=== PATIENT | female | born 1935 | race Caucasian/White ===

== ENCOUNTER 2020-02-27 12:49 | Outpatient (CLI) | payer MEDICARE, MEDICAID, SELFPAY | END 2020-02-27 12:50 | disposition home or self-care (01) | LOC: ANHAUDIO 12:52 | DX: Z01.10 Encounter for examination of ears and hearing without abnormal findings (principal) | CPT/HCPCS: 99199 ==

== ENCOUNTER 2020-03-08 10:54 | Outpatient (CLI) | payer MEDICARE, MEDICAID, SELFPAY | END 2020-03-08 10:55 | disposition home or self-care (01) | LOC: ANHAUDIO 10:55 | DX: Z01.10 Encounter for examination of ears and hearing without abnormal findings (principal) | CPT/HCPCS: 99199 ==

== ENCOUNTER 2020-03-19 08:34 | Outpatient (CLI) | payer MEDICARE, MEDICAID, SELFPAY | END 2020-03-19 08:35 | disposition home or self-care (01) | LOC: ANHAUDIO 08:35 | DX: H90.A21 Sensorineural hearing loss, unilateral, right ear, with restricted hearing on the contralateral side (principal); H90.A32 Mixed conductive and sensorineural hearing loss, unilateral, left ear with restricted hearing on the contralateral side | CPT/HCPCS: 92557; 92567 ==

== ENCOUNTER 2020-04-05 13:02 | Outpatient (RCR) | payer MEDICAID, SELFPAY | END 2020-04-05 23:59 | disposition home or self-care (01) | LOC: ANHAUDIO 13:02 | DX: Z46.1 Encounter for fitting and adjustment of hearing aid (principal) | CPT/HCPCS: V5241; V5256 ==

== ENCOUNTER 2020-08-01 08:56 | Outpatient (CLI) | payer MEDICARE, MEDICAID, SELFPAY ==
--- NOTE | ~2020-08-01 | MM_ITS ---
EXAMINATION: MM screening leena BI w joanne HISTORY: Screening TECHNIQUE: Craniocaudal and mediolateral oblique 3-D tomosynthesis images were obtained and synthetic 2-D images were generated. CAD analysis was submitted and interpreted. COMPARISON: No prior mammogram is available for comparison at this institution. BREAST PARENCHYMAL COMPOSITION: The breasts are heterogenously dense, which may obscure small masses. FINDINGS: There are a cluster of masses/asymmetries in the medial aspect of the right breast on the l argest measuring 8 mm. There is a focal asymmetry in the upper outer quadrant of the left breast. The re is a large mass in the lower central aspect of the left breast measuring 5 cm. There are additiona l masses adjacent to the dominant abnormality. IMPRESSION: 1. Bilateral breast masses and asymmetries. 2. Additional mammographic views and possible breast ultrasound are recommended. BI-RADS Category 0: Incomplete: Needs additional imaging evaluation. Reviewed, dictated and finalized at location A. IMPRESSION: 1. Bilateral breast masses and asymmetries. 2. Additional mammographic views and possible breast ultrasound are recommended . BI-RADS Category 0: Incomplete: Needs additional imaging evaluation.
== END 2020-08-01 08:57 | disposition home or self-care (01) ==
DX: Z12.31 Encounter for screening mammogram for malignant neoplasm of breast (principal); R92.8 Other abnormal and inconclusive findings on diagnostic imaging of breast
CPT/HCPCS: 77063; 77067

== ENCOUNTER 2021-01-30 12:16 | Inpatient (IN) | payer MEDICARE, MEDICAID, SELFPAY ==
[2021-01-30] VITALS (29 sets, daily range): BP systolic 142–178; BP diastolic 68–135; PULSE 58–85; RESP 15–31; TEMP 36.2–36.6; O2SAT 83–99
--- NOTE | ~2021-01-30 | US_ITS ---
EXAMINATION: US FNA w image guidance, US FNA additional DATE: 01/31/2021 14:25 INDICATION: Thyroid nodules TECHNIQUE: An initial hand stapler ultrasound was performed including of the previously not imaged left thyroid lobe. A time-out was performed to verify the patient's name, date of , and procedure to be performed. The procedure and its benefits and risks were discussed with the patient's son. Risks specifically d iscussed included bleeding and infection. The patient's son understood the risks and agreed to procee d. Attention was first turned to the largest right thyroid nodule. The right neck was prepped and nilesh ped in the usual sterile manner. 3 mL 1% lidocaine was used for local anesthesia. 6 passes were mad e with a 25G needle into the lesion. Appropriate needle location was documented with continuous sono graphic guidance. A sterile bandage was applied. Attention was then turned to the largest nodule in the left thyroid lobe. The left side of the neck was reprepped and draped in usual sterile manner. 3 mL 1% lidocaine was used for local anesthesia. 6 passes were made with a 25G needle into the lesion. Appropriate needle location was documented with continuous sonographic guidance. A sterile bandage was applied. There were no immediate complications. FINDINGS: Grayscale ultrasound images demonstrate the biopsy needles advanced into the largest 2.1 cm nodule in the superior left thyroid lobe which on real-time imaging also demonstrated internal tiny echogenic foci rendering this also a TI RADS 5 nodule. In addition to the second 1.9 cm TI RADS 5 nodule at the inferior right thyroid lobe there is a similar sized and appearing 1.9 cm TI RADS 5 solid hypoechoic nodule with echogenic foci in the left thyroid lobe which was also chosen for biopsy. Subsequent krystyna ges demonstrate the biopsy needle advanced into the left-sided TI-RADS 5 nodule. IMPRESSION: 1. Successful ultrasound-guided fine needle aspiration of a 2.1 cm TI-RADS 5 nodule at the superior right thyroid lobe. 2. Successful ultrasound-guided fine needle aspiration of a 1.9 cm TI-RADS 5 nodule at the left thyro id lobe. Reviewed, dictated and finalized at location A. IMPRESSION: 1. Successful ultrasound-guided fine needle aspiration of a 2.1 cm TI-RADS 5 n odule at the superior right thyroid lobe. 2. Successful ultrasound-guided fine needle aspiration of a 1.9 cm TI-RADS 5 no dule at the left thyroid lobe.
--- NOTE | ~2021-01-30 | US_ITS ---
EXAMINATION: US carotid duplex BI DATE: 01/31/2021 09:52 INDICATION: Carotid atherosclerosis. Strokelike symptoms. TECHNIQUE: Grayscale, color Doppler, and pulsed Doppler images of the cervical carotid arteries were obtained. The degree of vessel stenosis is placed in one of the following categories: normal, <50%, 5 0-69%, >=70% but less than near-occlusion, near-occlusion, or total occlusion. Note that percent sten osis relative to normal distal artery lumen diameter is indirectly measured from velocity measurement s as described by Villa, et al. Radiology 2003; 229:340-346. COMPARISON: None. FINDINGS: RIGHT: The right common carotid artery (CCA) peak systolic velocity (PSV) is 51 cm/s. The right internal car otid artery (ICA) PSV is 75 cm/s. The right ICA end-diastolic velocity (EDV) is 18 cm/s. The right IC A/CCA PSV ratio is 1.5. Grayscale and color Doppler images yield an estimate of <50% diameter reducti on from plaque in the ICA. The external carotid artery (ECA) PSV is 79 cm/s. There is antegrade flow in the right vertebral artery. LEFT: The left CCA PSV is 80 cm/s. The left ICA PSV is 110 cm/s. The left ICA EDV is 24 cm/s. The left ICA/ CCA PSV ratio is 1.4. Grayscale and color Doppler images yield an estimate of <50% diameter reduction from plaque in the ICA. The ECA PSV is 108 cm/s. There is antegrade flow in the left vertebral arter y. IMPRESSION: 1. <50% stenosis from small amount of plaque in the right internal carotid artery. 2. <50% stenosis from minimal plaque in the left internal carotid artery. Reviewed, dictated and finalized at location A. IMPRESSION: 1. <50% stenosis from small amount of plaque in the right internal carotid nguyen ry. 2. <50% stenosis from minimal plaque in the left internal carotid artery.
--- NOTE | ~2021-01-30 | CT_ITS ---
EXAMINATION: CTA brain carotid EXAM DATE: 01/30/2021 15:15 INDICATION: Abnormal head CT, right frontal lobe finding. Speech abnormality yesterday which resolved . Urinary tract infection. TECHNIQUE: Spiral CTA of the carotid arteries was performed with intravenous injection 100 cc of Om nipaque 350. Axial, coronal, sagittal reformatted images reviewed. Additional reformatted images cre ated on dedicated 3-D workstation. NASCET comparable standard used to assess the degree of arterial stenosis. Spiral CT angiogram cerebral arteries performed with the same intravenous injection of con trast. Source images of the brain CTA transferred to dedicated workstation for 3-D rotational image c reation. Coronal, sagittal maximum intensity pixel images also reviewed. The dose-length product (D LP) for this examination was 1044.77 mGy-cm. The exposure was tailored according to patient size, a nd iterative reconstruction (ASIR) was used as additional dose reduction technique. Correlation is ma de to noncontrast head CT from earlier same date.. FINDINGS: Mild right carotid bulb arteriosclerosis, 0% stenosis bilaterally. The vertebral arteries a re codominant. There is no carotid or vertebral basilar arterial dissection or fibromuscular dysplas ia. There are no cerebral artery aneurysms. There is symmetric cerebral artery arborization. The sagi ttal, transverse and sigmoid sinuses enhance normally, no venous sinus thrombosis. Internal cerebral veins also enhance normally. Again there is crowding of the right frontal lobe sulci. Prominent vascularity within these right fro ntal cortical sulci, which would most commonly be seen with luxury perfusion, but there is no loss of landin-white differentiation or arterial thrombus/cut off identified. No subarachnoid hemorrhage, acut e or subacute intracranial blood suspected. There is hyperdense, partially calcified right frontal extra-axial region measuring about 2 mm in thi ckness, could be calcification from prior resolved subdural or epidural hematoma. No more focal massl jb opacity to suggest meningioma. This is too dense to be hemorrhage. Incidental Findings: Right thyroid lobe nodule measuring 1.8 cm; follow-up nonemergent thyroid ultras ound for risk stratification. No cervical lymphadenopathy. IMPRESSION: 1. Absence region of right frontal cortical sulci with some prominent vascularity, possible luxury p erfusion. No loss of landin-white differentiation. MR without and with contrast recommended. 2. Very thin subtle extra-axial right frontal region likely calcified, could be sequela from prior s ubdural . 3. No acute or subacute intracranial blood suspected. 4. Bilateral carotid bulb 0% stenosis. No aneurysm. 5. Incidental right thyroid lobe nodule. Follow-up nonemergent ultrasound for risk stratification. I discussed impression 1 and 3 with Carlos Garnica MD at 01/30/2021 15:36 CDT. Reviewed, dictated and finalized at location A. IMPRESSION: 1. Absence region of right frontal cortical sulci with some prominent vascular ity, possible luxury perfusion. No loss of landin-white differentiation. MR with out and with contrast recommended. 2. Very thin subtle extra-axial right frontal region likely calcified, could b e sequela from prior subdural . 3. No acute or subacute intracranial blood suspected. 4. Bilateral carotid bulb 0% stenosis. No aneurysm. 5. Incidental right thyroid lobe nodule. Follow-up nonemergent ultrasound for risk stratification. I discussed impression 1 and 3 with Carlos Garnica MD at 01/30/2021 15:36 CDT.
--- NOTE | ~2021-01-30 | US_ITS ---
EXAMINATION: US thyroid DATE: 01/31/2021 09:50 INDICATION: Thyroid nodule TECHNIQUE: Multiple ultrasound images of the thyroid were obtained. COMPARISON: None. FINDINGS: The right thyroid lobe measures 4.7 x 2.7 x 1.8 cm. The left thyroid lobe measures cm. 2.1 cm wider than tall solid hypoechoic nodule with smooth margins and without echogenic foci in the superior rig ht thyroid (TI-RADS 4, moderately suspicious , FNA if >=1.5 cm, annual followup is >=1 cm). 1.9 cm wi nancy than tall solid hypoechoic nodule with both microcalcifications and coarse shadowing coarse calci fication in the inferior right thyroid (TI-RADS 5, highly suspicious , FNA if >=1.0 cm, annual follow up is >0.5 cm). At the patient's request the study was terminated prior to imaging the left thyroid l obe. IMPRESSION: 1. A couple right thyroid nodules meeting consensus criteria for ultrasound-guided biopsy. Would nomi mmend ultrasound-guided biopsy of at least the 1.9 cm TI RADS 5 right thyroid nodule. 2. Incomplete study terminated at patient request prior to imaging the left thyroid lobe. Reviewed, dictated and finalized at location A. IMPRESSION: 1. A couple right thyroid nodules meeting consensus criteria for ultrasound-addison ded biopsy. Would recommend ultrasound-guided biopsy of at least the 1.9 cm TI RADS 5 right thyroid nodule. 2. Incomplete study terminated at patient request prior to imaging the left thy roid lobe.
--- NOTE | ~2021-01-30 | MR_ITS ---
EXAMINATION: MR brain/brain stem wo/w con EXAM DATE: 01/31/2021 09:21 INDICATION: Transient ischemic attack eval. TECHNIQUE: Magnetic resonance imaging (MRI) of the brain/brain stem obtained without contrast. Sagit naty T1, axial diffusion, gradient echo (T2*), T1, T2, FLAIR sequences obtained. Patient was then inj ected with 13 cc intravenous Multihance contrast. Axial and coronal postcontrast T1 weighted sequence s obtained. There is no prior study for comparison. FINDINGS: There is crowding of the right frontal sulci as seen on previous imaging, with mildly promi nent vascularity overlying this, possibly luxury perfusion but no acute infarction demonstrated. Diff icult to determine whether or not there is any edema in the right frontal lobe given that there is ge neralized diffuse extensive microangiopathy. Unfortunately, differential diagnosis is not appreciably changed on this examination, but there is no discrete enhancing mass identified. Differential diagno sis transient ischemic attack with reperfusion, congenital cortical dysplasia, poorly defined glioma. No acute intracranial hemorrhage, extra-axial collections or obstructive hydrocephalus. Flow voids ar e seen in the cerebral arteries on the T2 weighted sequences consistent with their expected patency. Bilateral cataract surgery. IMPRESSION: 1. No change in right frontal lobe fullness, overlying hypervascularity, differential diagnosis inclu ding transient ischemic attack with reperfusion, congenital cortical dysplasia, poorly differentiated glioma. A follow-up 3-six-month brain MRI should be considered. 2. Severe microangiopathy. Reviewed, dictated and finalized at location A. IMPRESSION: 1. No change in right frontal lobe fullness, overlying hypervascularity, differ ential diagnosis including transient ischemic attack with reperfusion, congenit al cortical dysplasia, poorly differentiated glioma. A follow-up 3-six-month br ain MRI should be considered. 2. Severe microangiopathy.
--- NOTE | ~2021-01-30 | CT_ITS ---
EXAMINATION: CT brain wo con EXAM DATE: 01/30/2021 13:07 INDICATION: ? cva, old bleed, maybe new diplopia/aphasia. TECHNIQUE: Spiral CT of the head was performed without contrast. Axial, coronal and sagittal images were reviewed. The dose-length product (DLP) for this examination was 605.33 mGy-cm. The exposure w as tailored according to patient size, and iterative reconstruction (ASIR) was used as additional dos e reduction technique. There is no prior study for comparison. FINDINGS: There is moderate cerebral atrophy and extensive periventricular hypodensity, microangiopat hy. There is absence of expected sulcal prominence overlying the right frontal lobe; the sulci potent ially could be filled with subacute subarachnoid hemorrhage, particularly given the history provided above. No suspicion of vasogenic edema to suggest primary WAREHOUSE EXAMINER neoplasm. Possibly congenital right fro ntal cortical dysplasia could also cause this appearance. Does right frontal lobe correlate to locati on of patient's reported prior head bleed? Please clinically correlate. In absence of any additional clinical information or prior study, consider brain MRI examination. No extra-axial collections, acute ischemic infarction or obstructive hydrocephalus. Probable left mas toidectomy. No calvarial fracture. Bilateral cataract surgery. IMPRESSION: 1. Absence of expected sulci overlying right frontal lobe, with most likely explanation subacute sub arachnoid hemorrhage with differential diagnosis including primary WAREHOUSE EXAMINER neoplasm, congenital or hetero topia/dysplasia; please see above. 2. Microangiopathy and cerebral atrophy. Reviewed, dictated and finalized at location A. IMPRESSION: 1. Absence of expected sulci overlying right frontal lobe, with most likely ex planation subacute subarachnoid hemorrhage with differential diagnosis includin g primary WAREHOUSE EXAMINER neoplasm, congenital or heterotopia/dysplasia; please see above. 2. Microangiopathy and cerebral atrophy.
--- NOTE | 2021-01-30 12:21 | ECG_ITS ---
Rate 71 MA 157 QRSd 75 QT 347 QTc 378 --[place]-- P 62 QRS 3 T 71 SINUS RHYTHM WITH SINUS ARRHYTHMIA LOW QRS VOLTAGE IN PRECORDIAL LEADS BORDERLINE R WAVE PROGRESSION, ANTERIOR LEADS INFERIOR INFARCT, AGE INDETERMINATE BORDERLINE ST-T WAVE ABNORMALITY- HIGH LATERAL LEADS BASELINE ARTIFACT- I, III, AVL, V6 ABNORMAL ECG Electronically Signed On 01-30-2021 15:12:35 CDT by Cameron WIGGINS
[2021-01-30 12:39] LABS: Basophils Absolute Auto 0.1 K/mm3 (0.0-0.1); Basophils Percent Auto 0.9 % (0.2-1.2); Eosinophils Absolute Auto 0.2 K/mm3 (0-0.3); Eosinophils Percent Auto 2.7 % (0-4.4); Hematocrit 44.8 % (37.0-47.0); Hemoglobin 14.5 g/dL (12.0-15.0); Immature Granulocyte Absolute 0.02 K/mm3 (0.00-0.031); Immature Granulocyte Percent A 0.3 % (0-0.5); Lymphocytes Absolute Auto 1.15 K/mm3 (0.9-3.2); Lymphocytes Percent Auto 17.4 % (18.3-44.2); Mean Corpuscular HGB Conc 32.4 g/dl (32-36); Mean Corpuscular Hemoglobin 29.5 pg (26-34); Mean Corpuscular Volume 91.1 fl (80-100); Mean Platelet Volume 10.9 fl (7.4-10.4); Monocytes Absolute Auto 0.6 K/mm3 (0.1-0.6); Monocytes Percent Auto 8.3 % (2.6-8.5); Neutrophils Absolute Auto 4.7 K/mm3 (1.3-6.7); Neutrophils Percent Auto 70.4 % (45.5-73.1); Platelet Count Result 258 k/mm3 (150-375); Red Blood Count 4.92 M/mm3 (4.2-5.4); Red Cell Distribution Width 14.2 % (11.5-14.5); White Blood Count 6.6 K/mm3 (4.5-10.0)
[2021-01-30 12:52] LABS: Alanine Aminotransferase 13 U/L (4-35); Albumin Level 3.9 g/dL (3.5-5.1); Alkaline Phosphatase 37 U/L (38-126); Anion Gap 6 mmol/L (8-16); Aspartate Amino Transferase 19 U/L (14-36); Bilirubin,Total 0.5 mg/dL (0.2-1.3); Blood Urea Nitrogen 13 mg/dL (7-17); Calcium 10.1 mg/dL (8.4-10.2); Carbon Dioxide 25 mmol/L (22-30); Chloride 107 mmol/L (98-107); Estimated CRCL calculation 36 ml/min; Estimated Glomerular Filt Rate 60; Glucose 106 mg/dL (65-110); Potassium 4.5 mmol/L (3.4-5.0); Sodium 138 mmol/L (137-145)
--- NOTE | 2021-01-30 12:59 | PC.NURSE ---
Pt to ct on stretcher.
--- NOTE | 2021-01-30 13:47 | ED.NEUROSD ---
HPI - Neuro Symptoms/Deficit General Chief Complaint: Suspected CVA Stated Complaint: ELEVATED BP Source: patient Limitations: clinical condition and other History of Present Illness HPI Narrative: 85-year-old female Arrives via EMS for neurologic complaints There seems to be some discrepancy about what those complaints actually are, there was one report that she was complaining of ringing in her ears and was sent for that, another that her blood pressure was high and was sent for that, another that she was supposed to get a carotid Doppler and finally and more plausibly that she was seen by optometry for diplopia and they thought that that warranted further evaluation The patient is not a great historian some parts of her history do hang together, she tells me that yesterday around dinnertime she was talking to a friend and things did not make sense Apparently that did improve somewhat because there was no evaluation sought at that time Today she was in for an optometry exam and had her pupils dilated She told them that she had double vision which went away if she closes 1 eye and it seems like that might be what triggered the trip to the ER Her paperwork indicates that she has had a prior hemorrhagic stroke, info SNF has is it was pre-2018 and resulted in visual sx Currently no other complaints, does not feel ill, has not noticed any weakness in her extremities or any sensory issues Related Data Home Medications Medication Instructions Recorded Confirmed acetaminophen 325 mg PO ONCE PRN 01/30/21 atorvastatin 01/30/21 cholecalciferol (vitamin D3) 50 mcg PO DAILY 01/30/21 [Vitamin D3] emollient [Vanicream] applic TOPICAL 01/30/21 01/30/21 lithium carbonate 150 mg PO QID 01/30/21 lithium carbonate mg 01/30/21 ondansetron [Zofran ODT] 4 mg PO Q8H PRN 01/30/21 risperidone mg 01/30/21 sodium chloride [Children's Saline 2 spray INTRANASAL Q2H PRN 01/30/21 01/30/21 Nasal [place]] Allergies Allergy/AdvReac Type Severity Reaction Status Date / Time No Known Allergies Allergy Verified 01/30/21 15:16 Review of Systems Review of Systems: All systems reviewed & are unremarkable except as noted in HPI and below Constitutional: Constitutional: Reports no additional constitutional complaints, Denies chills, Denies fever(s) and Denies headache(s) Eyes: Eyes: Reports no additional eye complaints, Reports change in vision and Reports diplopia ENT: Denies headache(s) and Denies sore throat Cardiovascular: Cardiovascular: Denies chest pain and Denies dyspnea Respiratory: Respiratory: Denies cough and Denies dyspnea Gastrointestinal: Gastrointestinal: Denies abdominal pain, Denies diarrhea and Denies vomiting Genitourinary: Genitourinary: Denies urinary frequency and Denies dysuria Musculoskeletal: Musculoskeletal: Denies deformity, Denies arthralgias, Denies joint swelling and Denies numbness Integumentary/Breasts: Skin/Breast: Denies rash and Denies wounds Neurologic: Reports Abnormal speech present, Denies headache(s), Denies focal weakness and Denies numbness Psychiatric: Psychiatric: Reports no additional psychiatric complaints Endocrine: Endocrine: Reports no additional endocrine complaints Hematologic/Lymphatic: Hematologic/Lymphatic: Reports no additional hematologic/lymphatic complaints Allergic/Immunologic: Allergic/Immunologic: Reports no additional allergic/immunologic complaints Exam Const: General: cooperative and no acute distress Other: Elderly, frail HENMT: Head: normal to inspection, normocephalic and atraumatic Ears: external ears normal General nose exam: no epistaxis Eyes: Alignment and Position: alignment abnormal (Her right eye deviates laterally and corrects with covering of the left eye) Conjunctivae: conjunctivae normal Pupils: Dilated pupils EOM: EOMs intact bilaterally Neck: Neck: normal visual inspection, supple and no JVD Resp: Effort & Inspection: normal respirat
[2021-01-30 14:21] LABS: Add Urine Microscopic? YES; Appearance Urine Cloudy (Clear); Bacteria Urine Trace /hpf; Bilirubin Urine Negative (Negative); Blood Urine Negative (Negative); Color Urine Yellow (Yellow); Glucose Urine UA Negative (Negative); Ketones Urine Negative (Negative); Leukocyte Esterase Ur 3+ LEU/UL (Negative); Mucus Urine Rare /lpf; Nitrate Urine Negative (Negative); Protein Urine Negative (Negative); Specific Grav Ur 1.012 (1.001-1.035); Squamous Epithelial Cell Urine Many /hpf (Few); Urobilinogen Urine Negative mg/dL (<2.0); WBC Urine 51-75 /hpf
[2021-01-30] MEDS: Please add drug allergy info to patient profile. 1 EACH XX (15:53)
[2021-01-30] MEDS: CIPROFLOXACIN 500 MG TAB PO (15:59)
--- NOTE | 2021-01-30 16:31 | PC.NURSE ---
Attempted report to [facility] for 253, RN doing a port to call back.
--- NOTE | 2021-01-30 16:50 | ADMGEN ---
This patient, Adarsh Leiva, was admitted to Medical Room 253-01. Patient/family oriented to hospital policies and general routines including ID bracelet, bed and alarms, visiting hours, pain management, procedures, bathroom and other care routines, personal items, smoking policy, room service/diet, and visiting hours. Information on how to activate the Rapid Response Team has been discussed. Patient/Family are encouraged to report perceived risks to care and to ask questions if they do not understand what they are told or what they should do.
[2021-01-30] MEDS: LACTATED RINGERS 1,000 ML 50 ML IV CONT (17:07)
--- NOTE | 2021-01-30 20:55 | PM.IMHP ---
H&P: HPI History of Present Illness Date/Time: 01/30/21 20:55 This is an 85-year-old female patient who comes from [facility]. According to patient's correction records she has had a history of subarachnoid hemorrhage non aneurysm. She also has bipolar disease hypertension and vitamin-D deficiency. Her daughter is at the bedside answering the questions the best that she can. The patient is very hard of hearing and is having difficulty communicating with me. It is also reported that the patient has schizophrenia. The patient stated that she has double vision but this is been going on for quite some time. The patient was at the eye doctor today and mentioned the double vision and states that when she closes 1 eye she is back to single vision again. She has a very poor historian. Patient was sent to the emergency room with signs and symptoms of possible stroke. It was reported that the patient had slurred speech and blurred vision. Head CT was read as the following 1. Absence of expected sulci overlying right frontal lobe, with most likely explanation subacute subarachnoid hemorrhage with differential diagnosis including primary FINGERNAIL TECHNICIAN neoplasm, congenital or heterotopia/dysplasia; please see above. 2. Microangiopathy and cerebral atrophy. ER consulted neurology here who suggested that the patient be admitted To our facility. I had concerns about hemorrhagic stroke and there for the ER doctor did order a head neck CTA which was read as the following 1. Absence region of right frontal cortical sulci with some prominent vascularity, possible luxury perfusion. No loss of landin-white differentiation. MR without and with contrast recommended. 2. Very thin subtle extra-axial right frontal region likely calcified, could be sequela from prior subdural . 3. No acute or subacute intracranial blood suspected. 4. Bilateral carotid bulb 0% stenosis. No aneurysm. 5. Incidental right thyroid lobe nodule. Follow-up nonemergent ultrasound for risk stratification. the daughter was not aware of any subdural hematoma in the past however according to the correction papers when she was admitted from [facility] in to [facility] it was noted that she had a subarachnoid hemorrhage. The patient tells me that she has not been taking any of her medications. However the nurse here called the correction and it is reported that they have been putting her medications in her coffee so she will know that she is taking medication otherwise she would not take her lithium. the patient was also found to have a UTI. The patient is being admitted to observation Status on the date of service of 01/30/2021. Chief Complaint: Slurred speech Review of Systems Review of Systems: All systems reviewed & are unremarkable except as noted in HPI and below Constitutional: Constitutional: Reports as per HPI and Reports no additional constitutional complaints Eyes: Eyes: Reports as per HPI and Reports no additional eye complaints ENT: Reports system reviewed and no additional complaints, except as documented and Reports Normal hearing present Cardiovascular: Cardiovascular: Reports no additional cardiovascular complaints Respiratory: Respiratory: Reports no additional respiratory complaints and Reports no additional respiratory complaints Gastrointestinal: Gastrointestinal: Reports as per HPI and Reports no additional gastrointestinal complaints Musculoskeletal: Musculoskeletal: Reports no additional musculoskeletal complaints Integumentary/Breasts: Skin/Breast: Reports system reviewed and no additional complaints, except as docu and Reports as per HPI Neurologic: Reports system reviewed and no additional complaints, except as documented, Reports as per HPI and Reports Normal hearing present Psychiatric: Psychiatric: Reports no additional psychiatric complaints and Reports as per HPI Endocrine: Endocrine: Reports no additional endocrine
[2021-01-30] MEDS: ATORVASTATIN 10 MG TABLET PO (20:59)
[2021-01-30] MEDS: risperiDONE 0.5 MG TABLET PO (20:59)
[2021-01-30] MEDS: EUCERIN CREAM 120 GM JAR 1 APPLIC TOPICAL (20:59)
[2021-01-31] VITALS (7 sets, daily range): BP systolic 143–150; BP diastolic 60–87; PULSE 57–88; RESP 16–20; TEMP 36.4–36.6; O2SAT 92–94; BMI 27.2
--- NOTE | 2021-01-31 | ECHO_ITS ---
Patient Info Name: Adarsh Leiva Age: 85 years : 1935 Gender: Female Ht: 64 in Wt: 150 lbs BSA: 1.77 m2 HR: 63 bpm BP: 150 / 87 mmHg Exam Date: 01/31/2021 10:45 AM Exam Location: [facility] Patient Status: Outpatient Admit Date: 01/30/2021 Staff Ordering Physician: Michelle Funes NP Handle Turner: Maynor Mcfarlane RDCS, RT Attending Provider: Beth Gupta PA-C Referring Physician: Marin AGUIRRE; Exam Type: CA echo doppler color flow Study Info Indications G45.8 - Other transient cerebral ischemic attacks and related syndromes Complete two-dimensional, color flow and Doppler transthoracic echocardiogram is performed. Strain analysis performed. Summary 1. Complete two-dimensional, color flow and Doppler transthoracic echocardiogram is performed. 2. Left ventricular chamber dimension is normal. 3. Left ventricular systolic function is normal, estimated at 65-70%. 4. The left ventricular diastolic function is grade I diastolic dysfunction. 5. E/e' 17 is elevated. 6. Global longitudinal strain is abnormal at -15.1%. 7. Left atrial chamber dimension is mildly enlarged. 8. There is mild aortic valve sclerosis. 9. There is mild aortic valve stenosis with a peak velocity of 213 cm/s, mean gradient of 10 mmHg, and aortic valve area of 1.8 cm2. 10. There is mild mitral valve regurgitation. 11. No pulmonary hypertension, estimated pulmonary arterial systolic pressure is 32 mmHg. Left Ventricle E/e' 17 is elevated. Global longitudinal strain is abnormal at -15.1%. Left ventricular chamber dimension is normal. Left ventricular systolic function is normal, estimated at 65-70%. The left ventricular diastolic function is grade I diastolic dysfunction. Right Ventricle Right ventricular systolic function is normal and with normal TAPSE 2.0 cm. Right ventricular chamber dimension is normal. Left Atria Left atrial chamber dimension is mildly enlarged. Right Atria Right atrial chamber dimension is normal. Aortic Valve The aortic valve is trileaflet. There is mild aortic valve sclerosis. There is mild aortic valve stenosis with a peak velocity of 213 cm/s, mean gradient of 10 mmHg, and aortic valve area of 1.8 cm2. There is no aortic valve regurgitation. Pulmonic Valve There is no pulmonic regurgitation. Mitral Valve There is no mitral valve stenosis. There is mild mitral valve regurgitation. Tricuspid Valve There is no tricuspid valve regurgitation. No pulmonary hypertension, estimated pulmonary arterial systolic pressure is 32 mmHg. Pericardium/Pleural There is no pericardial effusion. Inferior Vena Cava Normal inferior vena cava with >50% collapse upon inspiration consistent with normal right atrial pressure, 5 mmHg. Aorta The aortic root size at the sinus of Valsalva is normal. Left Ventricular Outflow Tract Name Value Normal LVOT 2D LVOT Diameter 2.0 cm LVOT Doppler LVOT Peak Gradient 4 mmHg LVOT Mean Gradient 2 mmHg LVOT VTI 30 cm LVOT VTI/AV VTI Ratio
[2021-01-31] MEDS: risperiDONE 0.5 MG TABLET PO ×2 (05:45→16:13)
[2021-01-31 05:53] LABS: Basophils Absolute Auto 0.1 K/mm3 (0.0-0.1); Eosinophils Absolute Auto 0.2 K/mm3 (0-0.3); Hematocrit 42.4 % (37.0-47.0); Hemoglobin 13.6 g/dL (12.0-15.0); Immature Granulocyte Absolute 0.02 K/mm3 (0.00-0.031); Immature Granulocyte Percent A 0.3 % (0-0.5); Mean Corpuscular HGB Conc 32.1 g/dl (32-36); Mean Corpuscular Hemoglobin 29.2 pg (26-34); Mean Corpuscular Volume 91.2 fl (80-100); Mean Platelet Volume 11.5 fl (7.4-10.4); Monocytes Absolute Auto 0.7 K/mm3 (0.1-0.6); Monocytes Percent Auto 11.5 % (2.6-8.5); Neutrophils Absolute Auto 3.5 K/mm3 (1.3-6.7); Neutrophils Percent Auto 58.2 % (45.5-73.1); Platelet Count Result 248 k/mm3 (150-375); Red Blood Count 4.65 M/mm3 (4.2-5.4); Red Cell Distribution Width 14.3 % (11.5-14.5)
[2021-01-31 06:05] LABS: Alanine Aminotransferase 11 U/L (4-35); Albumin Level 3.5 g/dL (3.5-5.1); Alkaline Phosphatase 33 U/L (38-126); Anion Gap 5 mmol/L (8-16); Aspartate Amino Transferase 19 U/L (14-36); Bilirubin,Total 0.4 mg/dL (0.2-1.3); Blood Urea Nitrogen 15 mg/dL (7-17); Carbon Dioxide 24 mmol/L (22-30); Chloride 109 mmol/L (98-107); Estimated CRCL calculation 40 ml/min; Estimated Glomerular Filt Rate 60; Glucose 99 mg/dL (65-110); Magnesium 1.9 mg/dL (1.6-2.3); Potassium 4.3 mmol/L (3.4-5.0); Sodium 138 mmol/L (137-145)
[2021-01-31 06:07] LABS: Lithium 0.4 mmol/L (0.6-1.2)
[2021-01-31 06:41] LABS: Thyroid Stimulating Hormone Reflex 0.771 uIU/mL (0.465-4.68)
--- NOTE | 2021-01-31 08:30 | PC.NURSE ---
I attempted to give pt her morning dose of [place]. Pt began screaming and cursing and verbally abusing me informing me that she never takes meds and she never will and that I need to F off! I was informed by the night nurse that I should crush the med and put it in her coffee without her knowing. Pt was already drinking the coffee making that option impossible even if I had been willing, WHICH I AM NOT, to engage in subterfuge. The charge nurse entered the room to determine why pt was screaming and cursing and provide assistance. I was instructed to document that pt refuses the med and that I am correct in that we are not going to secretly medicate a pt.
--- NOTE | 2021-01-31 08:45 | PC.NURSE ---
This patient, Adarsh Leiva, was transferred to [[facility]] on 01/31/21 at 0845.
--- NOTE | 2021-01-31 09:20 | PCSTNOTE ---
Speech Therapy attempted to see patient at 9:20. Patient not in room. Will try again later.
--- NOTE | 2021-01-31 10:03 | PC.NURSE ---
Returned from OR per [[facility] ].
--- NOTE | 2021-01-31 10:58 | PM.IMPN ---
Progress Note: A&P Assessment and Plan (1) Binocular vision disorder with diplopia: Code(s): H53.2 - Diplopia <Beth Gupta PA-C - Last Filed: 01/31/21 11:46> Status: Acute <Beth Gupta PA-C - Last Filed: 01/31/21 11:46> Assessment and Plan: The patient had an abnormal CT the brain however CTA was performed and is reported that there is no subdural hemorrhage at this time. We did review the records from the detention which stated the patient was admitted into the detention after she is released from [facility] subarachnoid hemorrhage. Patient was found to have slurred speech prior to arrival and it was thought that maybe the patient had another stroke. -The patient's right eye has a gaze to the right and is not aligned with the left eye. I did not notice any facial droop. The patient tells me that she has had diplopia for some time now. The daughter was not sure about this and did not think that this was old and thought that this was new. -I did not start the patient on any Plavix or aspirin at this time due to her abnormal reading. -Neurology has been consulted. MRI: 1. No change in right frontal lobe fullness, overlying hypervascularity, differential diagnosis including transient ischemic attack with reperfusion, congenital cortical dysplasia, poorly differentiated glioma. A follow-up 3-six-month brain MRI should be considered. 2. Severe microangiopathy. Carotid Doppler: 1. <50% stenosis from small amount of plaque in the right internal carotid artery. 2. <50% stenosis from minimal plaque in the left internal carotid artery. -Further recommendations per Neurology. Appreciate their input. <Beth Gupta PA-C - Last Filed: 01/31/21 11:46> (2) Acute UTI: Code(s): N39.0 - Urinary tract infection, site not specified <Beth Gupta PA-C - Last Filed: 01/31/21 11:46> Status: Acute <ERIKA Torres Last Filed: 01/31/21 11:46> Assessment and Plan: -Blood and urine cultures are pending -Continue with Rocephin <ERIKA Torres Last Filed: 01/31/21 11:46> (3) CVA (cerebral vascular accident): Code(s): I63.9 - Cerebral infarction, unspecified <Beth Gupta PA-C - Last Filed: 01/31/21 11:46> Status: Acute <Beth Gupta PA-C - Last Filed: 01/31/21 11:46> Assessment and Plan: -Prior records indicate patient had a the subarachnoid hemorrhage prior to being admitted to the detention -Pt is a poor historian -No acute findings on MRI -Further management per neurology <Beth Gupta PA-C - Last Filed: 01/31/21 11:46> (4) Hyperlipidemia: Code(s): E78.5 - Hyperlipidemia, unspecified <Beth Gupta PA-C - Last Filed: 01/31/21 11:46> Status: Chronic <eBth Gupta PA-C Last Filed: 01/31/21 11:46> Assessment and Plan: -Continue with patient's home medications of Lipitor. -The patient does not think that she has been taking any of her medications. It was reported from the detention that the patient is refusing medications however they placed her medications and her morning coffee. <Bteh Gupta PA-C Last Filed: 01/31/21 11:46> (5) HTN (hypertension) with goal to be determined: Code(s): I10 - Essential (primary) hypertension <Beth Gupta PA-C Last Filed: 01/31/21 11:46> Status: Chronic <ERIKA Torres Last Filed: 01/31/21 11:46> Assessment and Plan: -Do not see where the patient is on any medication at this time -p.r.n. hydralazine with parameters -Continue to monitor <Beth Gupta PA-C - Last Filed: 01/31/21 11:46> (6) Schizophrenia: Code(s): F20.9 - Schizophrenia, unspecified <Beth Gupta PA-C - Last Filed: 01/31/21 11:46> Status: Acute <ERIKA Torres
--- NOTE | 2021-01-31 11:18 | WPDNEURCNPN ---
Assessment and Plan Additional Plan 1. Horizontal diplopia with normal MRI except the findings suggestive of congenital cortical dysplasia but with differential diagnosis of glioma. Diplopia is most likely unrelated to the hemispheric lesion could be secondary to Extracranial neuropathy as the MRI of the brain does not show any brainstem involvement. 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 Bipolar disease 2. Hypertension 3. Vitamin-D deficiency 4 his schizophreniapatient is reportedly very hard of hearing and also was having difficulties in communicating mostly information was provided by her daughter. Patient has been experiencing diplopia for some time along with the slurred speech and blurred vision. [place] had been taking multiple medications at the facility which included lithium 150+ 300 mg daily in addition to risperidone 0.5 mg 3 times a day evaluation up until now included the CT scan of the head raising the possibility of absence of the expected sulci overlying the right frontal lobe, this particular study was followed by the MRI of the brain which raise the possibility of right frontal lobe fullness with overlying hypervascularity with the differential of 1. Congenital cortical dysplasia 2. Poorly differentiated glioma along with severe microangiopathy. CTA documented again absence of the right frontal cortical sulci with prominent vascularity without loss of landin-white differentiation along with very thin subtle extra-axial right frontal region likely calcified could be secondary to prior subdural but there was no carotid bulb stenosis or aneurysm routine lab studies are normal except the UA and the cultures are pending Review of Systems Review of Systems: All systems reviewed & are unremarkable except as noted in HPI and below PMFSH Past Medical History Medical History HTN (hypertension) with goal to be determined Hyperlipidemia Schizophrenia Surgical History Surgical History H/O tubal ligation History of ear surgery Hx of cholecystectomy Family History Family History Mother History of behavioral and mental health problems Social History Social History Social History: the patient tells me that she is allowed 10 cigarettes at the alf daily. She is a . And her son Conor is a durable power estate attorney for healthcare. The patient has been disabled for quite some time. She has a total of 5 children. No alcohol marijuana or illicit drugs. Code status full code Smoking status: Current every day smoker Spiritual care concerns: No Meds Home Medications and Allergies Home Medications Medication Instructions Recorded Confirmed Type acetaminophen 650 mg PO BID PRN 01/30/21 01/30/21 History atorvastatin 10 mg PO HS 01/30/21 01/30/21 History cholecalciferol (vitamin D3) 50 mcg PO DIRECTED 01/30/21 01/30/21 History [Vitamin D3] emollient [Vanicream] 1 applic TOPICAL HS 01/30/21 01/30/21 History lithium carbonate 150 mg PO DAILY 01/30/21 01/30/21 History lithium carbonate 300 mg PO DAILY 01/30/21 01/30/21 History ondansetron [Zofran ODT] 4 mg PO Q8H PRN 01/30/21 01/30/21 History risperidone 0.5 mg PO TID 01/30/21 01/30/21 History sodium chloride [Oriental Nasal Mist] 2 spray INTRANASAL DAILY PRN 01/30/21 01/30/21 History Allergies Allergy/AdvReac Type Severity Reaction Status Date / Time No Known
--- NOTE | 2021-01-31 12:11 | PC.NURSE ---
Upon pt's return from MRI, I attempted to hook pt's IV (which is running NS) back up; however, pt refused and began screaming and cursing at me again. I asked pt not to speak to me like that and stated that I will return when she calms down. At approximately the same time, the engineering instructor and student entered the room. Pt began a conversation with the instructor stating that she remembers when they met on the set but can't remember his name. She continued with the deluded conversation as I left the room.
--- NOTE | 2021-01-31 12:15 | PC.NURSE ---
I received a call from ultrasound stating that they had received additional orders for pt. The US tech informed me that she was not able to complete the prior orders scanning pt's thyroid as pt became belligerent with her and accused her of choking pt. The US tech had serious concerns about the ability to perform another test/procedure since she was unable to complete the prior scan. She asked that I speak with the hospitalist regarding what and how they wanted to handle this.
--- NOTE | 2021-01-31 12:20 | PC.NURSE ---
I contacted the hospitalist regarding pt's new/additional orders and the concerns expressed by the US tech. I also made the hospitalist aware of the fact that pt refused her meds, refused to have the IV restarted, and has been belligerent and combative with multiple members of staff across multiple departments. The hospitalist stated that she would confer with the doctor and let me know what and how they want to proceed.
--- NOTE | 2021-01-31 12:23 | PC.NURSE ---
In an attempt to get the IV fluids restarted on pt, I asked another staff member to attempt to reconnect pt's IV in the hopes that she might not be as combative with someone other than me. However, pt refused to allow the IV to be reconnected and emphatically ordered the staff member out of her room.
--- NOTE | 2021-01-31 12:29 | PC.NURSE ---
As requested by the hospitalist, I contacted pt's son (Kirk) to inquire as to if or when he was going to be able to visit pt. He had planned to come visit this evening. I explained the concerns of the hospitalist and staff as well as what pt has been doing and saying including but not limited to her refusal of medications and procedures. Kirk stated, of course she is in a rather exasperated tone and explained that she frequently is belligerent and combative. He stated that he was going to attempt to reach his boss so that he can leave work early and be here as soon as that is accomplished.
[2021-01-31] MEDS: LORazepam INJ (*CRX) 2 MG/ML VIAL 0.5 MG IV PUSH (13:14)
--- NOTE | 2021-01-31 13:25 | PC.NURSE ---
This patient, Adarsh Leiva, was transferred to [[facility]] on 01/31/21 at 1325.
--- NOTE | 2021-01-31 14:56 | PCSTNOTE ---
Speech Therapy attempted evaluation on this date; but pt was out of the room; nursing stated to try tomorrow as the pt has been agitated all day.
--- NOTE | 2021-01-31 15:30 | PC.NURSE ---
pt began exiting the bed setting off the alarm. pt's son, Kirk, was in the room but did not say or do anything despite the fact that he agreed to come here in an effort to calm, control pt's outbursts and belligerent behavior. The community service aide was the first in the room to respond to the alarm. I entered a few seconds later. Pt was informing the medical secretary teacher that she was getting up and the medical secretary teacher was not going to stop her. Pt was repeatedly asked where are you going to which pt eventually replied, to the bathroom. I informed the medical secretary teacher I would take over and help pt to the bathroom. Pt muttered vile profanities and shoved me away from her. I received a phone call during this time so I had the CHRISTIAN SCIENCE PRACTITIONER relieve me in assisting pt. A few minutes later, the CHRISTIAN SCIENCE PRACTITIONER informed me that pt cursed vile profanities and made threats against her including rearing her arm back with her hand balled in a fist as if she was going to strike the CHRISTIAN SCIENCE PRACTITIONER. This prompted the CHRISTIAN SCIENCE PRACTITIONER to turn to the pt's son, Kirk, and ask him, can't you help control your mama? Kirk chuckled and said she's a tough old bird and handed pt a tablet and told her to pick out a new winter coat. The CHRISTIAN SCIENCE PRACTITIONER left the room and reported what transpired to me.
[2021-01-31] MEDS: LITHIUM CARBONATE 300 MG CAPSULE PO (16:13)
[2021-01-31] MEDS: HALOPERIDOL LACTATE 5 MG/ML VIAL IM (20:41)
--- NOTE | 2021-01-31 21:10 | PC.NURSE ---
At 2030 pt is very agitated, anxious and combative. She is demanding to go outside and smoke. She is swinging her fist at staff and yelling curse words. We are unable to redirect her. Refer to ABBEY BROUSSARD was given. Will monitor closely.
[2021-01-31] MEDS: LACTATED RINGERS 1,000 ML 50 ML IV CONT (22:30)
[2021-01-31] MEDS: EUCERIN CREAM 120 GM JAR 1 APPLIC TOPICAL (22:30)
[2021-02-01 03:45] VITALS: BP 150/67; PULSE 68; RESP 20; TEMP 36.1; O2SAT 93
[2021-02-01 08:00] VITALS: PULSE 68; RESP 20; O2SAT 93
[2021-02-01] MEDS: LITHIUM CARBONATE 150 MG CAPSULE PO (08:30)
--- NOTE | 2021-02-01 10:53 | WPDCNPSYCH ---
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 [place] level was 0.4; consequently, my recommendation would have been to stop lithium. Due to the cerebrovascular accidents the patient with her advancing dementia may no longer benefit from lithium. Zyprexa 2.5mg PO Q HS would have been recommended as a scheduled medication for her psychotic agitation. Zyprexa 2.5mg p.o. or IM t.i.d. p.r.n. psychotic agitation would also have been ordered. Ativan 0.5mg p.o. or IM t.i.d. p.r.n. agitation would also have been considered to be started. Medical evaluation would have been included to have B12 folic acid levels vitamin-D level, RPR, HIV, hepatitis testing. Patient is psychiatrically cleared for discharge to her shelter Reason for consultation: Adarsh Leiva is a 85 year old lady whose consult was ordered for psychotic, agitated dementia History of present illness: Patient has been refusing her medications. In the middle of the night she got up and was trying to leave the facility to smoke cigarettes and was given Haldol and Ativan. Her sleep was noted by nursing to be good her appetite is good her vital signs the nurse reported were stable. The nurse states that she has no evidence of being suicidal or homicidal but that she does have self talk and was noted to be responding in the room as if she was seen and hearing another person in the room with him she had dialogue. She did at 1 point approach the nurse in a manner that was threatening. She did not hit anyone she did not throw anything did not break anything did not screen and did not have any sexual inappropriate behaviors. The patient herself denies depressed mood. She denies a change in her sleep. She denies feelings of worthlessness. She denies anhedonia. She does endorse increased irritability over the last couple of weeks. Her activity level which is quite low she reports to be unchanged. She denies recent or remote history of suicidal ideation. She denies recent or remote history of suicidal attempts. She denies any auditory or visual hallucinations or paranoia. She denies any memory problems. Past psychiatric history: Patient has a prior history of schizophrenia and bipolar disorder. The patient reports that she has been psychiatrically hospitalized in the past at [facility]. Past medical history: Recent subdural hematoma Urinary tract infection Hyperlipidemia Hypertension Tubal ligation History of ear surgery History of cholecystectomy Right thyroid nodule with recommendation to biopsy Scheduled medications: Atorvastatin 10mg p.o. q.h.s. Vitamin D3 [id number] p.o. q.month Rocephin 1g was given IV piggyback for the UTI [place] 150mg p.o. q.a.m.; and 300mg p.o. q.h.s. Risperidone 0.5mg p.o. q.8 hours Allergies: No known drug allergies Smoking history: Patient is allowed to smoke 10 cigarettes a day at the shelter Alcohol history: None Drug history: None Family history: The patient's mother and a cousin have a history of some unknown mental illness. Her cousin has been psychiatrically hospitalized in the past. Social history: Patient lives in a shelter. She is
--- NOTE | 2021-02-01 12:31 | PM.DS ---
DS: Admitting Diagnosis Discharge Date 02/01/2021. Admitting Diagnosis Altered mental status. DS: Discharge Diagnosis Discharge Diagnosis (1) Binocular vision disorder with diplopia: Code(s): H53.2 - Diplopia Status: Acute Assessment and Plan: The patient had an abnormal CT the brain however CTA was performed and is reported that there is no subdural hemorrhage at this time. We did [facility] the [facility] which stated the patient was admitted into the penitentiary after she is released from [facility] subarachnoid hemorrhage. Patient was found to have slurred speech prior to arrival and it was thought that maybe the patient had another stroke. -The patient's right eye has a gaze to the right and is not aligned with the left eye. I did not notice any facial droop. The patient tells me that she has had diplopia for some time now. The daughter was not sure about this and did not think that this was old and thought that this was new. -I did not start the patient on any Plavix or aspirin at this time due to her abnormal reading. -Neurology has been consulted. Horizontal diplopia with normal MRI except the findings suggestive of congenital cortical dysplasia but with differential diagnosis of glioma. Diplopia is most likely unrelated to the hemispheric lesion could be secondary to Extracranial neuropathy as the MRI of the brain does not show any brainstem involvement. As far as the description about the cortical lesion is concerned we will need to have the follow-up MRI in about 3 months to make sure this is not slow growing glioma MRI: 1. No change in right frontal lobe fullness, overlying hypervascularity, differential diagnosis including transient ischemic attack with reperfusion, congenital cortical dysplasia, poorly differentiated glioma. A follow-up 3-six-month brain MRI should be considered. 2. Severe microangiopathy. Carotid Doppler: 1. <50% stenosis from small amount of plaque in the right internal carotid artery. 2. <50% stenosis from minimal plaque in the left internal carotid artery. -Further recommendations per Neurology. Appreciate their input. (2) Acute UTI: Code(s): N39.0 - Urinary tract infection, site not specified Status: Acute Assessment and Plan: -Blood and urine cultures are under referring at the time of discharge. (3) CVA (cerebral vascular accident): Code(s): I63.9 - Cerebral infarction, unspecified Status: Acute Assessment and Plan: -Prior records indicate patient had a the subarachnoid hemorrhage prior to being [facility] to the penitentiary -Pt is a poor historian -No acute findings on MRI -Further management per neurology (4) Hyperlipidemia: Code(s): E78.5 - Hyperlipidemia, unspecified Status: Chronic Assessment and Plan: -Continue with home Lipitor. (5) HTN (hypertension) with goal to be determined: Code(s): I10 - Essential (primary) hypertension Status: Chronic Assessment and Plan: reported history of hypertension. However the patient has not required any blood pressure management in the hospital. blood pressure is in the 143-150/60-67 range on the day of discharge. (6) Schizophrenia: Code(s): F20.9 - Schizophrenia, unspecified Status: Acute Assessment and Plan: continually [place] for now. Patient was agitated during the hospital stay and was treated with Haldol with improvement of her mood and behavior. Follow-up by the penitentiary psychiatrist. (7) Thyroid nodule: Code(s): E04.1 - Nontoxic single thyroid nodule Status: Acute Assessment and Plan: -Incidental finding Thyroid US 1. A couple right thyroid nodules meeting consensus criteria for ultrasound-guided biopsy. Would recommend ultrasound-guided biopsy of at least the 1.9 cm TI RADS 5 right thyroid nodule. 2. Incomplete study terminated
--- NOTE | 2021-02-01 12:45 | PCSTNOTE ---
Speech Therapy spoke with nurse prior to attempting evaluation on this date. Nurse stated patient is combative today and advised speech therapy not attempt the evaluation. Nurse also stated that she believes patient is to be discharged today or tomorrow.
== END 2021-02-01 13:01 | DRG 689 ==
LOC: ANHED 16:09 → ANH2MED 16:25
PROVIDERS: Nurse Practitioner; Admitting Provider Internal Medicine; Emergency Provider Emergency Medicine; Visit Provider Internal Medicine
DX: N39.0 Urinary tract infection, site not specified (principal); I63.9 Cerebral infarction, unspecified; R29.701 NIHSS score 1; E04.1 Nontoxic single thyroid nodule; H53.2 Diplopia; F31.9 Bipolar disorder, unspecified; I10 Essential (primary) hypertension; E55.9 Vitamin D deficiency, unspecified; E78.5 Hyperlipidemia, unspecified; F17.210 Nicotine dependence, cigarettes, uncomplicated; F20.9 Schizophrenia, unspecified; Z79.899 Other long term (current) drug therapy
CPT/HCPCS: 10005; 10006; 36415; 70450; 70496; 70498; 70553; 76536; 80053; 80178; 81001; 83735; 84443; 85025; 87040; 87086; 88173; 88305; 93005; 93306; 93880; 96361; 96365; 96375; 97161; 97165; 99285; A9270; A9577; G0378; J0696; J1630; J2060; J7120; Q9967

== ENCOUNTER 2022-03-23 08:38 | Emergency (ER) | payer OTHER, SELFPAY ==
[2022-03-23] VITALS (16 sets, daily range): BP systolic 160–200; BP diastolic 71–91; PULSE 67–100; RESP 18–25; TEMP 36.5; O2SAT 93–96
--- NOTE | ~2022-03-23 | CT_ITS ---
EXAMINATION: CT brain wo con DATE: 03/23/2022 09:20 INDICATION: Intensive presenting with headache, dizziness, nausea and vomiting. TECHNIQUE: Computed tomography (CT) of the head was performed without intravenous contrast. Sagittal and coronal reconstructions were performed. The mA was adjusted according to patient size. Iterative reconstruction technique was employed. The dose-length product was 605.33 mGy-cm. COMPARISON: head CT dated 04/01/2020 and MR dated 01/31/2021 FINDINGS: Couple unchanged small old lacunar infarcts at the left basal ganglia and left thalamus. No acute int racranial hemorrhage, acute infarction or abnormal extra axial fluid collection. There is moderate sc attered white matter hypoattenuation consistent with chronic small vessel ischemic disease. Symmetric prominence of the sulci and ventricles consistent with moderate age-appropriate diffuse cerebral vol ume loss. The sulcal prominence continues to spare small region of the anterior right frontal lobe as described in detail on prior MRI. No mass/mass effect. Changes of bilateral intraocular lens replace ment. The orbits, paranasal sinuses and mastoid air cells are normal. IMPRESSION: 1. A couple small old lacunar infarcts at the left thalamus and left basal ganglia. No acute intracra nial process. 2. No change in the region of the anterior right frontal lobe with relative absence of the sulcal pro minence related to atrophy which given chronicity suggests either a congenital cortical dysplasia or potentially poorly differentiated glioma as described on prior MRI. Consider follow-up pre and postco ntrast brain MRI. 3. Moderate scattered white matter hypoattenuation consistent with chronic small vessel ischemic dise ase. Reviewed, dictated and finalized at location A. [facility] IMPRESSION: 1. A couple small old lacunar infarcts at the left thalamus and left basal gang trudi. No acute intracranial process. 2. No change in the region of the anterior right frontal lobe with relative abs ence of the sulcal prominence related to atrophy which given chronicity suggest s either a congenital cortical dysplasia or potentially poorly differentiated g lioma as described on prior MRI. Consider follow-up pre and postcontrast brain MRI. 3. Moderate scattered white matter hypoattenuation consistent with chronic smal l vessel ischemic disease.
--- NOTE | ~2022-03-23 | CT_ITS ---
EXAMINATION: CT abdomen pelvis w con DATE: 03/23/2022 10:38 INDICATION: Abdominal pain, nausea and vomiting TECHNIQUE: Computed tomography (CT) of the abdomen and pelvis was performed with 100 mL Omnipaque-350 intravenous contrast. Automated exposure control and iterative reconstruction technique were employe d. The dose-length product was 977.86 mGy-cm. COMPARISON: None FINDINGS: Mild respiratory motion and mild atelectasis at the bilateral lung bases. Borderline heart size. Athe rosclerotic coronary artery calcific location. No pericardial effusion. 2.9 cm cystic lesion in the l eft breast. Small hepatic calcification and multiple splenic calcifications consistent with old granu lomatous disease. Cholecystectomy clips at the gallbladder fossa. Bilateral renal cysts the largest m easuring 2.4 cm the upper pole of the right kidney. There is moderate colonic diverticulosis with a s igmoid and descending colon predominance. There is no adjacent inflammatory change to suggest diverti culitis. Small bowel and appendix are normal. Bladder, uterus and bilateral adnexa are unremarkable. No free intraperitoneal gas or fluid. No pathologically enlarged abdominal or pelvic lymphadenopathy. Mild lumbar levoscoliosis with severe spondylosis. Chronic superior endplate compression fracture at L2 with 40% central vertebral body height loss. IMPRESSION: 1. No acute intra-abdominal/pelvic process. 2. Diverticulosis. 3. 2.9 cm cystic lesion at the left breast which may represent a residual seroma related to excisiona l biopsy of a 5 cm left breast mass identified on mammogram dated 08/01/2020. Correlate with surgical h istory. Reviewed, dictated and finalized at location A. [facility] IMPRESSION: 1. No acute intra-abdominal/pelvic process. 2. Diverticulosis. 3. 2.9 cm cystic lesion at the left breast which may represent a residual serom a related to excisional biopsy of a 5 cm left breast mass identified on mammogr am dated 08/01/2020. Correlate with surgical history.
--- NOTE | 2022-03-23 09:02 | ECG_ITS ---
Measurements Intervals [place] Rate: 65 P: -23 [place]: 125 QRS: -21 QRSD: 90 T: 151 QT: 367 QTc: 384 Interpretive Statements SINUS RHYTHM WITH SINUS ARRHYTHMIA INFERIOR MYOCARDIAL INFARCTION, PROBABLY OLD MODERATE T-WAVE ABNORMALITY, CONSIDER LATERAL ISCHEMIA ABNORMAL ECG COMPARED TO ECG 01/30/2021 12:26:55 NO SIGNIFICANT CHANGES Electronically Signed On 03-23-2022 16:55:59 TWISTER HAND by Sonny Roman M.D.
--- NOTE | 2022-03-23 09:08 | ED.RECABL ---
HPI - Recheck/Abnormal Lab/Rx General Chief Complaint: Recheck/Abnormal Lab/Rx Stated Complaint: nausea Time Seen by Provider: 03/23/22 08:56 History of Present Illness HPI narrative: Patient is an 86-year-old female with a history of schizophrenia here for evaluation of hypertension. Reportedly patient's blood pressure is at her care facility this morning around 200 systolic. Patient denies any history of hypertension. She is currently complaining of nausea, dizziness, and a mild headache. She states that the symptoms started this morning. Denies any chest pain, vomiting, abdominal pain, fevers or chills, ear pain, recent head trauma. Related Data Home Medications Medication Instructions Recorded Confirmed acetaminophen 325 mg capsule 650 mg PO BID PRN Pain 01/30/21 01/30/21 atorvastatin 10 mg tablet 10 mg PO HS 01/30/21 01/30/21 cholecalciferol (vitamin D3) 50 50 mcg PO DIRECTED 01/30/21 01/30/21 mcg (2,000 unit) capsule (Vitamin D3) emollient (Vanicream topical) 1 applic topical HS 01/30/21 01/30/21 lithium carbonate 150 mg capsule 150 mg PO DAILY 01/30/21 01/30/21 lithium carbonate 300 mg capsule 300 mg PO DAILY 01/30/21 01/30/21 ondansetron 4 mg disintegrating 4 mg PO Q8H PRN Nausea 01/30/21 01/30/21 tablet risperidone 1 mg/mL oral solution 0.5 mg PO TID 01/30/21 01/30/21 sodium chloride 0.65 % nasal spray 2 spray intranasal DAILY PRN 01/30/21 01/30/21 aerosol Congestion Allergies Allergy/AdvReac Type Severity Reaction Status Date / Time No Known Allergies Allergy Verified 01/30/21 15:16 Review of Systems Review of Systems: Gen.: Reports dizziness. Denies fevers or chills Eyes: Denies eye pain or visual change ENT: Denies congestion Respiratory: Denies shortness of breath or cough CV: Denies chest pain or palpitations GI: Reports nausea. Denies abdominal pain emesis or diarrhea denies burning, urgency, frequency or hematuria Musculoskeletal: denies back pain or muscle pain Neuro: Denies numbness, tingling, weakness or focal weakness Skin: Denies rash Except as documented, all other systems reviewed and negative [facility] Past Medical History Medical History HTN (hypertension) with goal to be determined Hyperlipidemia Schizophrenia Surgical History Surgical History H/O tubal ligation History of ear surgery Hx of cholecystectomy Family History Family History Mother History of behavioral and mental health problems Social History Social History Social History: the patient tells me that she is allowed 10 cigarettes at the retirement daily. She is a . And her son Conor is a durable power assistant attorney general for healthcare. The patient has been disabled for quite some time. She has a total of 5 children. No alcohol marijuana or illicit drugs. Code status full code Smoking status: Current every day smoker Spiritual care concerns: No Exam Narrative: APPEARANCE: Well appearing, no pain in distress, well-nourished. Head: Normocephalic and atraumatic. EYES: Exotropia of right eye. PERRLA/EOMI, conjunctivae clear NOSE: No nasal drainage EARS: External ear normal in appearance THROAT: Oropharynx is clear. Mucous membranes are moist. NECK: Supple. No adenopathy, no masses. RESPIRATORY: Airway patent, respirations nonlabored. Clear to auscultation bilaterally, no rales, rhonchi, wheezing. CARDIOVASCULAR: Regular rate and rhythm without murmurs, rubs, or gallops. ABDOMINAL: Normoactive bowel sounds. Soft, nontender, nondistended. No rebound tenderness or guarding. MUSCULOSKELETAL: Extremities are warm and well-perfused. Moves all extremities well. No edema. NEURO: Alert and oriented x3. Normal speech. No focal neurologic deficits. SKIN: Skin is warm and dry. No ra
[2022-03-23 09:09] LABS: Basophils Absolute Auto 0.1 K/mm3 (0.0-0.1); Basophils Percent Auto 0.8 % (0.2-1.2); Eosinophils Absolute Auto 0.3 K/mm3 (0-0.3); Eosinophils Percent Auto 3.3 % (0-4.4); Hematocrit 46.3 % (37.0-47.0); Hemoglobin 14.8 g/dL (12.0-15.0); Immature Granulocyte Absolute 0.02 K/mm3 (0.00-0.031); Immature Granulocyte Percent A 0.3 % (0-0.5); Lymphocytes Absolute Auto 1.37 K/mm3 (0.9-3.2); Lymphocytes Percent Auto 17.5 % (18.3-44.2); Mean Corpuscular Hemoglobin 29.2 pg (26-34); Mean Corpuscular Volume 91.5 fl (80-100); Mean Platelet Volume 11.1 fl (7.4-10.4); Monocytes Absolute Auto 0.6 K/mm3 (0.1-0.6); Monocytes Percent Auto 7.5 % (2.6-8.5); Neutrophils Absolute Auto 5.5 K/mm3 (1.3-6.7); Neutrophils Percent Auto 70.6 % (45.5-73.1); Platelet Count Result 238 k/mm3 (150-375); Red Blood Count 5.06 M/mm3 (4.2-5.4); Red Cell Distribution Width 13.7 % (11.5-14.5); White Blood Count 7.8 K/mm3 (4.5-10.0)
--- NOTE | 2022-03-23 09:15 | PC.NURSE ---
pt to xray.
[2022-03-23] MEDS: ONDANSETRON INJ 4 MG/2 ML VIAL IV PUSH (09:21)
[2022-03-23 09:24] LABS: Alanine Aminotransferase 17 U/L (6-35); Albumin Level 3.9 g/dL (3.5-5.1); Alkaline Phosphatase 40 U/L (38-126); Anion Gap 3 mmol/L (8-16); Aspartate Amino Transferase 22 U/L (14-36); Bilirubin,Total 0.4 mg/dL (0.2-1.3); Blood Urea Nitrogen 14 mg/dL (7-17); Calcium 9.6 mg/dL (8.4-10.2); Carbon Dioxide 26 mmol/L (22-30); Chloride 111 mmol/L (98-107); Estimated Glomerular Filt Rate 60; Glucose 116 mg/dL (65-110); Lipase 79 U/L (23-300); Potassium 4.1 mmol/L (3.4-5.0); Sodium 140 mmol/L (137-145)
[2022-03-23 09:35] LABS: Troponin I < 0.012 ng/mL (0.000-0.034)
[2022-03-23 11:45] LABS: Add Urine Microscopic? YES; Appearance Urine Clear (Clear); Bilirubin Urine Negative (Negative); Blood Urine Negative (Negative); Color Urine Light Yellow (Yellow); Glucose Urine UA Negative (Negative); Ketones Urine Negative (Negative); Leukocyte Esterase Ur 1+ LEU/UL (Negative); Nitrate Urine Negative (Negative); Protein Urine Negative (Negative); Specific Grav Ur <= 1.005 (1.001-1.035); Urobilinogen Urine 0.2 mg/dL (<2.0); pH Urine 6.5 (5.0-9.0)
[2022-03-23 11:51] LABS: RBC Urine 0-2 /hpf (0-2); Squamous Epithelial Cell Urine Moderate /hpf (Few)
--- NOTE | 2022-03-23 12:51 | PC.NURSE ---
report called to case management at [facility]. Son notified that pt is being discharged to [place].
== END 2022-03-23 13:20 ==
PROVIDERS: Emergency Provider Physician Assistant
DX: R03.0 Elevated blood-pressure reading, without diagnosis of hypertension (principal); F20.9 Schizophrenia, unspecified; E78.5 Hyperlipidemia, unspecified; F17.210 Nicotine dependence, cigarettes, uncomplicated; R82.998 Other abnormal findings in urine; R94.31 Abnormal electrocardiogram [ECG] [EKG]
CPT/HCPCS: 36415; 70450; 74177; 80053; 81001; 83690; 84484; 85025; 87086; 87088; 93005; 96374; 99284; J2405; Q9967

== ENCOUNTER 2022-10-27 09:13 | Emergency (ER) | payer OTHER, SELFPAY ==
[2022-10-27 09:07] VITALS: BP 114/81; RESP 16; TEMP 37.3; O2SAT 98
--- NOTE | 2022-10-27 09:25 | ED.EAR ---
HPI - Ear Problem General Chief complaint: Ear Stated complaint: R ear pain/visual changes x 1 hour History of Present Illness HPI Narrative: Pt presents with episode of right ear pain earlier today. Pt says it does not hurt now. Pt wears hearing aid in this ear. Pt denies fever or other concerns. Related Data Home Medications Medication Instructions Recorded Confirmed acetaminophen 325 mg capsule 650 mg PO BID PRN Pain 01/30/21 01/30/21 atorvastatin 10 mg tablet 10 mg PO HS 01/30/21 01/30/21 cholecalciferol (vitamin D3) 50 50 mcg PO DIRECTED 01/30/21 01/30/21 mcg (2,000 unit) capsule (Vitamin D3) emollient (Vanicream topical) 1 applic topical HS 01/30/21 01/30/21 lithium carbonate 150 mg capsule 150 mg PO DAILY 01/30/21 01/30/21 lithium carbonate 300 mg capsule 300 mg PO DAILY 01/30/21 01/30/21 ondansetron 4 mg disintegrating 4 mg PO Q8H PRN Nausea 01/30/21 01/30/21 tablet risperidone 1 mg/mL oral solution 0.5 mg PO TID 01/30/21 01/30/21 sodium chloride 0.65 % nasal spray 2 spray intranasal DAILY PRN 01/30/21 01/30/21 aerosol Congestion Allergies Allergy/AdvReac Type Severity Reaction Status Date / Time No Known Allergies Allergy Verified 10/27/22 09:31 Review of Systems Review of Systems: All systems reviewed & are unremarkable except as noted in HPI and below PMFSH Past Medical History Medical History HTN (hypertension) with goal to be determined Hyperlipidemia Schizophrenia Surgical History Surgical History H/O tubal ligation History of ear surgery Hx of cholecystectomy Family History Family History Mother History of behavioral and mental health problems Social History Social History Social History: the patient tells me that she is allowed 10 cigarettes at the correction daily. She is a . And her son Conor is a durable power environmental attorney for healthcare. The patient has been disabled for quite some time. She has a total of 5 children. No alcohol marijuana or illicit drugs. Code status full code Smoking status: Current every day smoker Spiritual care concerns: No Exam Const: General: healthy appearing Nutritional Appearance: well nourished HENMT: Head: normal to inspection Ears: external ears normal and TM abnormal (right) bulging and with fluid behind the TM; not erythematous Face/Nose/Sinus: Normal external nose present Mouth: Yes Normal oral and palatal mucosa present Throat: posterior oropharynx normal Neck: Neck: normal visual inspection and no lymphadenopathy GI: GI Palp: Yes Soft to palpation Auscultation: normal bowel sounds Skin: General skin exam: normal color Wounds: no wounds Neuro: General: moves all extremities Course Vital Signs Vital signs: Vital Signs Temperature 99.1 F 10/27/22 09:07 Respiratory Rate 16 10/27/22 09:07 Blood Pressure 114/81 10/27/22 09:07 Pulse Oximetry 98 10/27/22 09:07 Oxygen Delivery Room Air 10/27/22 09:07 Temperature 99.1 F 10/27/22 09:07 Respiratory Rate 16 10/27/22 09:07 Blood Pressure 114/81 10/27/22 09:07 Pulse Oximetry 98 10/27/22 09:07 Oxygen Delivery Room Air 10/27/22 09:07 Medical Decision Making Vital Signs Vital Signs: Vital Signs Temperature 99.1 F 10/27/22 09:07 Respiratory Rate 16 10/27/22 09:07 Blood Pressure 114/81 10/27/22 09:07 Pulse Oximetry 98 10/27/22 09:07 Oxygen Delivery Room Air 10/27/22 09:07 Temperature 99.1 F 10/27/22 09:07 Respiratory Rate 16 10/27/22 09:07 Blood Pressure 114/81 10/27/22 09:07 Pulse Oximetry 98 10/27/22 09:07 Oxygen Delivery Room Air 10/27/22 09:07 Discharge Plan Discharge Clinical Impression: Ear ache Patient Disposition: Home, Self-Care
--- NOTE | 2022-10-27 10:14 | PC.NURSE ---
Patient placed on bed alarm. Patient given call light and reoriented.
== END 2022-10-27 10:30 ==
PROVIDERS: Emergency Provider Emergency Medicine
DX: H92.02 Otalgia, left ear (principal); I10 Essential (primary) hypertension; E78.5 Hyperlipidemia, unspecified
CPT/HCPCS: 99283

== ENCOUNTER 2022-11-13 12:13 | Emergency (ER) | payer OTHER, SELFPAY ==
[2022-11-13] VITALS (7 sets, daily range): BP systolic 108–150; BP diastolic 69–96; PULSE 66–86; RESP 18–24; TEMP 36.8; O2SAT 97–100
--- NOTE | ~2022-11-13 | CT_ITS ---
EXAMINATION: CT brain wo con DATE: 11/13/2022 13:36 INDICATION: Altered mental status TECHNIQUE: Computed tomography (CT) of the head was performed without intravenous contrast. Sagittal and coronal reconstructions were performed. The mA was adjusted according to patient size. Iterative reconstruction technique was employed. The dose-length product was 1210.67 mGy-cm. COMPARISON: head CT dated 03/23/2022 FINDINGS: Unchanged small old lacunar infarcts at the left thalamus and left basal ganglia. No acute intracrani al hemorrhage, acute infarction or abnormal extra axial fluid collection. Stable appearance of extens jessica scattered white matter hypoattenuation consistent with chronic small vessel ischemic disease. Sym metric prominence of the sulci and ventricles consistent with moderate age-appropriate diffuse cerebr al volume loss. The sulcal prominence continues to spare small region of the anterior right frontal l obe as described in detail on prior MRI. No mass/mass effect. No mass/mass effect. Changes of bilater al intraocular lens replacement. The orbits, paranasal sinuses and right mastoid air cells are normal . Status post left mastoidectomy. IMPRESSION: 1. Chronic old lacunar infarcts at the left thalamus and left basal ganglia. No acute intracranial pr ocess. 2. No change in the region of the anterior right frontal lobe with relative absence of the sulcal pro minence related to atrophy which given chronicity suggests either a congenital cortical dysplasia or potentially poorly differentiated glioma as described on prior MRI. Consider follow-up pre and postco ntrast brain MRI. 3. Age-related changes including moderate diffuse volume loss and extensive scattered white matter hy poattenuation consistent with chronic small vessel ischemic disease. Reviewed, dictated and finalized at location A. IMPRESSION: 1. Chronic old lacunar infarcts at the left thalamus and left basal ganglia. No acute intracranial process. 2. No change in the region of the anterior right frontal lobe with relative abs ence of the sulcal prominence related to atrophy which given chronicity suggest s either a congenital cortical dysplasia or potentially poorly differentiated g lioma as described on prior MRI. Consider follow-up pre and postcontrast brain MRI. 3. Age-related changes including moderate diffuse volume loss and extensive sca ttered white matter hypoattenuation consistent with chronic small vessel ischem ic disease.
--- NOTE | 2022-11-13 13:00 | PC.NURSE ---
Pt legs, buttock and perineal area covered in liquid stool as well as dried stool. Pt had no depends on at time of arrival. Pt dentures covered in food and plaque. Pt has very dry mucus membranes, and dried drainage from on both eyes.
[2022-11-13 13:07] LABS: Appearance Urine Clear (Clear); Bilirubin Urine Negative (Negative); Blood Urine Negative (Negative); Color Urine Yellow (Yellow); Glucose Urine UA Negative (Negative); Ketones Urine Negative (Negative); Leukocyte Esterase Ur Negative LEU/UL (Negative); Nitrate Urine Negative (Negative); Protein Urine Negative (Negative); Specific Grav Ur 1.018 (1.001-1.035); Urobilinogen Urine 0.2 mg/dL (<2.0); pH Urine 6.5 (5.0-9.0)
--- NOTE | 2022-11-13 13:21 | ED.AMS ---
HPI - Altered Mental Status General Chief Complaint: Altered Mental Status Stated Complaint: fall Time Seen by Provider: 11/13/22 12:44 History of Present Illness HPI narrative: 87-year-old female present emergency department for evaluation of change in mental status. retirement states that the patient is normally ANO x1-2 but is very angry. After the head injury yesterday did 15-minute monitoring simple that she is at her baseline. Today they felt the patient was nicer than normal so they sent her to the emergency department for evaluation. Upon arrival to the ED patient was verbally insulting the nursing staff but is noncombative. Patient was very upset when being cleaned up. Patient denies any pain or injury. Related Data Home Medications Medication Instructions Recorded Confirmed acetaminophen 325 mg capsule 650 mg PO BID PRN Pain 01/30/21 01/30/21 atorvastatin 10 mg tablet 10 mg PO HS 01/30/21 01/30/21 cholecalciferol (vitamin D3) 50 50 mcg PO DIRECTED 01/30/21 01/30/21 mcg (2,000 unit) capsule (Vitamin D3) emollient (Vanicream topical) 1 applic topical HS 01/30/21 01/30/21 lithium carbonate 150 mg capsule 150 mg PO DAILY 01/30/21 01/30/21 lithium carbonate 300 mg capsule 300 mg PO DAILY 01/30/21 01/30/21 ondansetron 4 mg disintegrating 4 mg PO Q8H PRN Nausea 01/30/21 01/30/21 tablet risperidone 1 mg/mL oral solution 0.5 mg PO TID 01/30/21 01/30/21 sodium chloride 0.65 % nasal spray 2 spray intranasal DAILY PRN 01/30/21 01/30/21 aerosol Congestion Allergies Allergy/AdvReac Type Severity Reaction Status Date / Time No Known Allergies Allergy Verified 10/27/22 09:31 Review of Systems Review of Systems: All systems reviewed & are unremarkable except as noted in HPI and below PMFSH Past Medical History Medical History HTN (hypertension) with goal to be determined Hyperlipidemia Schizophrenia Surgical History Surgical History H/O tubal ligation History of ear surgery Hx of cholecystectomy Family History Family History Mother History of behavioral and mental health problems Social History Social History Social History: the patient tells me that she is allowed 10 cigarettes at the detention daily. She is a . And her son Conor is a durable power managing attorney for healthcare. The patient has been disabled for quite some time. She has a total of 5 children. No alcohol marijuana or illicit drugs. Code status full code Smoking status: Current every day smoker Spiritual care concerns: No Exam Narrative: APPEARANCE: Well appearing, no pain, no distress, well-nourished. HEAD: normocephalic, atraumatic. EYES: PERRLA/EOMI, conjunctivae clear. NOSE: Normal no drainage NECK: Supple. No adenopathy, no masses. RESPIRATORY: Airway patent, respirations nonlabored. Clear to auscultation bilaterally, no rales, rhonchi, wheezing. CARDIOVASCULAR: Regular rate and rhythm without murmurs rubs or gallops. ABDOMINAL: Soft, nontender, nondistended, normal bowel sounds MUSCULOSKELETAL: Moves all extremities. Strength/ROM intact, No edema, No calf tenderness. NEURO: Alert. Cranial nerves II through XII intact. Grossly intact SKIN: Warm, dry. Normal Color Course Course Emergency Course: 87-year-old female presents emergency department for evaluation of altered mental status. Patient is afebrile with a minor leukocytosis of 11.7. CMP shows no acute abnormalities. No evidence of urinary tract infection patient's head CT was negative. Patient is back at her normal baseline. retirement was updated on the patient's status the patient is being discharged back to her care facility. Vital Signs Vital signs: Vital Signs Temperature 98.2 F 11/13/22 12:14 Pulse Rat
[2022-11-13 14:17] LABS: Add Urine Microscopic? NO
[2022-11-13 14:25] LABS: Basophils Absolute Auto 0.1 K/mm3 (0.0-0.1); Basophils Percent Auto 0.4 % (0.2-1.2); Eosinophils Absolute Auto 0.3 K/mm3 (0-0.3); Eosinophils Percent Auto 2.1 % (0-4.4); Hematocrit 46.4 % (37.0-47.0); Hemoglobin 14.4 g/dL (12.0-15.0); Immature Granulocyte Absolute 0.05 K/mm3 (0.00-0.031); Immature Granulocyte Percent A 0.4 % (0-0.5); Lymphocytes Absolute Auto 1.14 K/mm3 (0.9-3.2); Lymphocytes Percent Auto 9.8 % (18.3-44.2); Mean Corpuscular Hemoglobin 28.2 pg (26-34); Mean Platelet Volume 11.3 fl (7.4-10.4); Monocytes Absolute Auto 0.8 K/mm3 (0.1-0.6); Monocytes Percent Auto 6.8 % (2.6-8.5); Neutrophils Absolute Auto 9.4 K/mm3 (1.3-6.7); Neutrophils Percent Auto 80.5 % (45.5-73.1); Platelet Count Result 264 k/mm3 (150-375); Red Cell Distribution Width 14.5 % (11.5-14.5); White Blood Count 11.7 K/mm3 (4.5-10.0)
[2022-11-13 14:36] LABS: INR 1.1; Prothrombin Time 14.9 Seconds (11.1-14.7)
[2022-11-13 14:37] LABS: Partial Thromboplastin Time 26.8 SECONDS (22.3-36.8)
[2022-11-13 14:44] LABS: Alanine Aminotransferase 15 U/L (6-35); Albumin Level 3.6 g/dL (3.5-5.1); Alkaline Phosphatase 39 U/L (38-126); Anion Gap 1 mmol/L (8-16); Aspartate Amino Transferase 20 U/L (14-36); Bilirubin,Total 0.5 mg/dL (0.2-1.3); Blood Urea Nitrogen 16 mg/dL (7-17); Calcium 10.2 mg/dL (8.4-10.2); Carbon Dioxide 26 mmol/L (22-30); Chloride 107 mmol/L (98-107); Estimated CRCL calculation 28 ml/min; Estimated Glomerular Filt Rate 43; Glucose 93 mg/dL (65-110); Potassium 4.2 mmol/L (3.4-5.0); Sodium 134 mmol/L (137-145)
[2022-11-13] MEDS: SODIUM CHLORIDE 0.9% IV 1,000 ML 999 ML IV CONT (14:58)
== END 2022-11-13 17:01 ==
PROVIDERS: Emergency Provider Emergency Medicine
DX: R41.82 Altered mental status, unspecified (principal); I10 Essential (primary) hypertension; E78.5 Hyperlipidemia, unspecified; F20.9 Schizophrenia, unspecified; Z90.49 Acquired absence of other specified parts of digestive tract; F17.210 Nicotine dependence, cigarettes, uncomplicated
CPT/HCPCS: 36415; 70450; 80053; 81003; 85025; 85610; 85730; 96360; 99284; J7030

== ENCOUNTER 2023-08-12 09:45 | Outpatient (CLI) | payer OTHER, SELFPAY ==
--- NOTE | ~2023-08-12 | CT_ITS ---
Clinical Indication: Soft tissue mass CT Scan of the Chest with Contrast: Technique: Contiguous sections were acquired throughout the chest after intravenous administration of 85 cc of Omnipaque 350. Dose reduction technique was used on this scan by utilizing automated exposu re control and iterative reconstruction technique. The dose-length product (DLP) was 544.18 mGy-cm. Findings: Minimally prominent right paratracheal lymph nodes are present. There are extensive atherosclerotic c alcific effusions aorta. Densely calcified left paratracheal and left hilar lymph nodes are present. There are coronary artery calcifications. Small pericardial effusion present. Small right pleural effusion and minimal left pleural effusion ar e present. There is extensive dense consolidation of the right upper lobe. There is additional dense consolidati on extensively involving the lingula/left upper lobe. There is focal consolidation the left lower lob e. Images through the upper abdomen reveal mild splenomegaly with calcified splenic granulomas. There ar e mild chronic compression deformity of T6 and T7. Impression: Dense multifocal consolidation the right upper lobe and left lower lobe predominantly, with additiona l focal involvement in the left lower lobe. Findings are suspicious for multifocal pneumonia. Neoplas tic lesions are not excluded. Clinical correlation required. Follow-up exam after interval therapy ve rsus tissue sampling recommended. Small pericardial effusion and small bilateral pleural effusions, as detailed above. Mildly prominent right paratracheal lymph nodes, nonspecific. Reviewed, dictated and finalized at [facility]. Impression: Dense multifocal consolidation the right upper lobe and left lower lobe predomi nantly, with additional focal involvement in the left lower lobe. Findings are suspicious for multifocal pneumonia. Neoplastic lesions are not excluded. Clini erick correlation required. Follow-up exam after interval therapy versus tissue s ampling recommended. Small pericardial effusion and small bilateral pleural effusions, as detailed a peewee. Mildly prominent right paratracheal lymph nodes, nonspecific.
--- NOTE | ~2023-08-12 | XR_ITS ---
Clinical Indication: Shortness of breath AP and lateral views of the chest: Comparison: None Findings: There are large areas of consolidation at the right upper lobe and lingula. No definite ple ural effusion.. Cardiomediastinal silhouette is within normal limits. Bones and soft tissues are unr emarkable. Impression: Extensive right upper lobe and lingular consolidation. Findings could reflect bilateral pneumonia. Un derlying mass lesion is difficult to exclude. Correlate clinically. CT is being performed concurrentl y, which will further elucidate the findings. Reviewed, dictated and finalized at location M. Impression: Extensive right upper lobe and lingular consolidation. Findings could reflect b ilateral pneumonia. Underlying mass lesion is difficult to exclude. Correlate c linically. CT is being performed concurrently, which will further elucidate the findings.
[2023-08-12 10:36] LABS: Estimated Glomerular Filt Rate 53
== END 2023-08-12 09:46 | disposition home or self-care (01) ==
PROVIDERS: Visit Provider Nurse Practitioner Family
DX: R91.8 Other nonspecific abnormal finding of lung field (principal); I31.39 Other pericardial effusion (noninflammatory); R59.0 Localized enlarged lymph nodes
CPT/HCPCS: 71046; 71260; Q9967

== ENCOUNTER 2023-09-09 08:42 | Inpatient (IN) | payer OTHER, SELFPAY ==
[2023-09-09] VITALS (22 sets, daily range): BP systolic 125–179; BP diastolic 51–94; PULSE 76–98; RESP 18–33; TEMP 36.5–36.6; O2SAT 84–97; BMI 31.5
--- NOTE | ~2023-09-09 | XR_ITS ---
XR chest 1V portable Ordering provider: Elza Canales PA-C History: 88 years Female with . hypoxia . Comparison: September 09, 2023 FINDINGS: MEDIASTINUM: The cardiac silhouette is not enlarged. LUNGS: No effusion or pneumothorax. Opacification seen in the right mid zone and left mid and lower z one suggestive of pneumonia. No change from previous examination. OTHER: No free air under the diaphragm. Right dextroscoliosis. Degenerative changes of the spine. IMPRESSION: Bilateral pneumonia. Reviewed, dictated and finalized at location A. IMPRESSION: Bilateral pneumonia.
--- NOTE | ~2023-09-09 | CT_ITS ---
EXAMINATION: CT diagnostic chest w con DATE: 09/09/2023 10:32 INDICATION: right lung mass TECHNIQUE: Computed tomography (CT) of the chest was performed with 100 mL Omnipaque-350 intravenous contrast. Additional 3D reconstructions utilizing coronal maximum intensity projection (MIP) were per formed. Automated exposure control and iterative reconstruction technique were employed. The dose-sharon gth product was 516.18 mGy-cm. COMPARISON: 08/12/2023 FINDINGS: Again seen are multiple masslike regions of consolidation with surrounding groundglass and small nodu lar opacities in the lingula, right upper and left lower lobes. Additional smaller nodular and ground glass opacities in the right middle and right lower lobe. Region of consolidation appears slightly sm aller in the right upper lobe but there is been progression in the left lower lobe and lingula. Regio ns of the consolidation appear to demonstrate focal mass effect upon the fissures which can be seen a t the lingula along the posterior margin of the major fissure and at the posterior aspect of the righ t upper lobe along the cephalad aspect of the major fissure. Small bilateral pleural effusions slight ly more prominent than with some interval progression on the right. Calcite nodules at the left upper lobe along with calcified left hilar and mediastinal lymph nodes consistent with old granulomatous d isease. Heart size is normal. Atherosclerotic coronary artery calcific location. No pericardial effus ion. Thoracic aorta is normal in caliber with no dissection. Left axillary lymphadenopathy the larges t measuring 3.4 x 1.3 cm . Mild left hilar lymphadenopathy. Multinodular goiter. Multiple splenic erick cific lesions consistent with old granulomatous disease. Cholecystectomy clips at the gallbladder fos sa. A few right renal cysts the largest measuring 2.4 cm the upper pole. Moderate thoracolumbar dextr oscoliosis with moderate spondylosis. Chronic T6 and T7 compression fractures. IMPRESSION: 1. Mild progression in bilateral patchy masslike regions of consolidation in both lungs which remains concerning for pneumonia, malignancy or combination thereof. Consider bronchoscopy and/or diagnostic thoracentesis of a small right pleural effusion for further evaluation. 2. Basilar left axillary lymphadenopathy could be reactive, metastatic or due to lymphoma. Consider u ltrasound-guided biopsy of the largest left axillary lymph node. Reviewed, dictated and finalized at location A. IMPRESSION: 1. Mild progression in bilateral patchy masslike regions of consolidation in [place] th lungs which remains concerning for pneumonia, malignancy or combination ther eof. Consider bronchoscopy and/or diagnostic thoracentesis of a small right ple ural effusion for further evaluation. 2. Basilar left axillary lymphadenopathy could be reactive, metastatic or due t o lymphoma. Consider ultrasound-guided biopsy of the largest left axillary lymp h node.
--- NOTE | ~2023-09-09 | US_ITS ---
EXAMINATION:US venous doppler LE BI INDICATION:Pitting edema TECHNIQUE: Multiple grayscale, color flow and Doppler images of the right and left lower extremity de ep venous systems were obtained and reviewed. COMPARISON:No prior studies for comparison. FINDINGS: The common femoral, superficial femoral and popliteal veins demonstrate normal respiratory variation, augmentation and compressibility. Color flow is also seen within the posterior tibial, pe roneal, greater saphenous and profunda veins. IMPRESSION: 1: No lower extremity deep venous thrombosis. Reviewed, dictated and finalized at location B.
--- NOTE | ~2023-09-09 | XR_ITS ---
XR chest 1V portable 09/09/2023 09:43 Indication: Cough. Pneumonia. Procedure: AP portable chest Comparison: 08/12/2023 Findings: Masslike consolidation present in the right upper and left midlung. Cardiomegaly. Mild inte rstitial edema. No significant effusion. No pneumothorax. There is scoliosis. There is atherosclerosi s and ectasia of the aorta. Impression: 1: Masslike consolidation bilaterally, slightly improved in the right upper thorax compared with prio r study. Differential diagnosis includes pneumonia and malignancy. 2: Cardiomegaly with mild interstitial edema. Reviewed, dictated and finalized at location B. Impression: 1: Masslike consolidation bilaterally, slightly improved in the right upper tho rax compared with prior study. Differential diagnosis includes pneumonia and ma lignancy. 2: Cardiomegaly with mild interstitial edema.
--- NOTE | ~2023-09-09 | CT_ITS ---
EXAMINATION: CTA chest PE protocol DATE: 09/13/2023 00:57 INDICATION: Hypoxia. Tachycardia. TECHNIQUE: Computed tomography angiography (CTA) of the chest was performed with 100 mL Omnipaque-350 intravenous contrast timed to evaluate the pulmonary arteries. Coronal maximum intensity projection 3D-reconstructions were created by the technologist. Automated exposure control and iterative reconst ruction technique were employed. The dose-length product was 662.86 mGy-cm. COMPARISON: Chest CT 09/09/2023 FINDINGS: There are airspace opacities involving all lobes. There is diffuse smooth septal thickening in the lungs. Calcified left lung nodules and calcified left hilar and mediastinal lymph nodes are c onsistent with old granulomatous disease. There are small pleural effusions. There are nodules in the thyroid measuring up to 9 mm, likely not clinically significant. The heart size is normal. There are coronary artery calcifications. There is a small pericardial effusion. There is no pulmonary embolus . A left axillary lymph node measures 3.3 x 1.5 cm. There is a 2.4 cm mass in left breast. There are cysts in right kidney measuring up to 2.1 cm. There are changes of cholecystectomy. Calcifications in the spleen are consistent with old granulomatous disease. There is thoracic dextroscoliosis and mode rate spondylosis. There is chronic height loss of multiple vertebral bodies. IMPRESSION: 1. No pulmonary embolus. 2. Mildly worsened diffuse lung disease, likely a combination of pneumonia and mild pulmonary edema. 3. Small pleural effusions with worsening on the left. 4. Stable small pericardial effusion. 5. Left breast mass suspicious for malignancy. A diagnostic mammogram with ultrasound is recommended. 6. Left axillary lymphadenopathy suspicious for metastatic disease. Reviewed, dictated and finalized at location E. IMPRESSION: 1. No pulmonary embolus. 2. Mildly worsened diffuse lung disease, likely a combination of pneumonia and mild pulmonary edema. 3. Small pleural effusions with worsening on the left. 4. Stable small pericardial effusion. 5. Left breast mass suspicious for malignancy. A diagnostic mammogram with ultr asound is recommended. 6. Left axillary lymphadenopathy suspicious for metastatic disease.
--- NOTE | 2023-09-09 08:53 | ECG_ITS ---
Test Date: 2023-09-09 08:56:27 Measurements Intervals [place] Rate: 97 P: 38 OK: 134 QRS: -19 QRSD: 76 T: 86 QT: 300 QTc: 383 Interpretive Statements SINUS RHYTHM POSSIBLE LEFT ATRIAL ENLARGEMENT [-0.1mV P WAVE IN V1/V2] LOW QRS VOLTAGE IN PRECORDIAL LEADS [QRS DEFLECTION < 1.0 mV IN CHEST LEADS] LEFT VENTRICULAR HYPERTROPHY AND ST-T CHANGE [VOLTAGE CRITERIA PLUS ST/T ABNORMALITY] POSSIBLE ANTERIOR MYOCARDIAL INFARCTION , OF INDETERMINATE AGE [30 ms Q WAVE IN V3/V4, OR R < 0.2 mV IN V4] INFERIOR MYOCARDIAL INFARCTION , OF INDETERMINATE AGE [40+ ms Q WAVE AND/OR ST/T ABNORMALITY IN II/aVF] No previous ECG available for comparison Electronically Signed On 09-09-2023 12:44:10 CDT by Elena Barajas M.D.
[2023-09-09] MEDS: SODIUM CHLORIDE 0.9% IV 1,000 ML 150 ML IV CONT (09:15)
[2023-09-09 09:17] LABS: Basophils Absolute Auto 0.1 K/mm3 (0.0-0.1); Basophils Percent Auto 0.4 % (0.2-1.2); Eosinophils Absolute Auto 0.3 K/mm3 (0-0.3); Eosinophils Percent Auto 2.4 % (0-4.4); Hematocrit 41.5 % (37.0-47.0); Hemoglobin 12.2 g/dL (12.0-15.0); Immature Granulocyte Absolute 0.08 K/mm3 (0.00-0.031); Immature Granulocyte Percent A 0.6 % (0-0.5); Lymphocytes Percent Auto 5.7 % (18.3-44.2); Mean Corpuscular HGB Conc 29.4 g/dl (32-36); Mean Corpuscular Hemoglobin 24.7 pg (26-34); Mean Platelet Volume 11.4 fl (7.4-10.4); Monocytes Absolute Auto 0.8 K/mm3 (0.1-0.6); Monocytes Percent Auto 5.8 % (2.6-8.5); Neutrophils Absolute Auto 11.9 K/mm3 (1.3-6.7); Neutrophils Percent Auto 85.1 % (45.5-73.1); Platelet Count Result 274 k/mm3 (150-375); Red Blood Count 4.94 M/mm3 (4.2-5.4); Red Cell Distribution Width 18.6 % (11.5-14.5)
[2023-09-09 09:31] LABS: Alanine Aminotransferase 11 U/L (6-35); Albumin Level 3.2 g/dL (3.5-5.1); Alkaline Phosphatase 41 U/L (38-126); Anion Gap 6 mmol/L (4-12); Aspartate Amino Transferase 12 U/L (14-36); Bilirubin,Total 0.5 mg/dL (0.2-1.3); Blood Urea Nitrogen 24 mg/dL (7-17); Calcium 11.2 mg/dL (8.4-10.2); Carbon Dioxide 27 mmol/L (22-30); Chloride 108 mmol/L (98-107); Estimated CRCL calculation 30 ml/min; Estimated Glomerular Filt Rate 39; Glucose 146 mg/dL (65-110); Potassium 3.8 mmol/L (3.4-5.0); Sodium 141 mmol/L (137-145)
[2023-09-09 09:32] LABS: Appearance Urine Clear (Clear); Bilirubin Urine Negative (Negative); Blood Urine Negative (Negative); Color Urine Yellow (Yellow); Glucose Urine UA Negative (Negative); Ketones Urine Negative (Negative); Leukocyte Esterase Ur Negative LEU/UL (Negative); Nitrate Urine Negative (Negative); Protein Urine Negative (Negative); Specific Grav Ur 1.014 (1.001-1.035); Urobilinogen Urine 0.2 mg/dL (<2.0)
[2023-09-09 09:40] LABS: NT Pro B Type Natriuretic Pept 1390 pg/mL (19.9-100)
[2023-09-09 09:41] LABS: Add Urine Microscopic? NO
[2023-09-09] MEDS: PROCHLORPERAZINE EDISYLATE 10 MG/2 ML VIAL IV PUSH (10:03)
[2023-09-09 10:07] LABS: Anisocytosis 1+; Hypochromasia 1+; Platelet Estimate Adequate (Adequate); Schistocytes None Seen
--- NOTE | 2023-09-09 11:57 | ED.GENADULT ---
HPI - General Adult General Chief complaint: Recheck/Abnormal Lab/Rx Stated complaint: pna Time Seen by Provider: 09/09/23 08:50 Source: EMS and RN notes reviewed Mode of arrival: EMS Limitations: dementia History of Present Illness HPI narrative: 88-year-old with a history of schizophrenia, dementia was sent from care home for patient not feeling well. She is presently being treated for pneumonia. She did finish 2 rounds of oral antibiotics in the care home. No history can be obtained from the patient Onset (ago): unknown Related Data Home Medications Medication Instructions Recorded Confirmed acetaminophen 325 mg capsule 650 mg PO BID PRN Pain 01/30/21 01/30/21 atorvastatin 10 mg tablet 10 mg PO HS 01/30/21 01/30/21 cholecalciferol (vitamin D3) 50 50 mcg PO DIRECTED 01/30/21 01/30/21 mcg (2,000 unit) capsule (Vitamin D3) emollient (Vanicream topical) 1 applic topical HS 01/30/21 01/30/21 lithium carbonate 150 mg capsule 150 mg PO DAILY 01/30/21 01/30/21 lithium carbonate 300 mg capsule 300 mg PO DAILY 01/30/21 01/30/21 ondansetron 4 mg disintegrating 4 mg PO Q8H PRN Nausea 01/30/21 01/30/21 tablet risperidone 1 mg/mL oral solution 0.5 mg PO TID 01/30/21 01/30/21 sodium chloride 0.65 % nasal spray 2 spray intranasal DAILY PRN 01/30/21 01/30/21 aerosol Congestion Allergies Allergy/AdvReac Type Severity Reaction Status Date / Time No Known Allergies Allergy Verified 10/27/22 09:31 Review of Systems Review of Systems: ROS unobtainable: Yes unobtainable due to mental status PMFSH Past Medical History Medical History HTN (hypertension) with goal to be determined Hyperlipidemia Schizophrenia Surgical History Surgical History H/O tubal ligation History of ear surgery Hx of cholecystectomy Family History Family History Mother History of behavioral and mental health problems Social History Social History Social History: the patient tells me that she is allowed 10 cigarettes at the care home daily. She is a . And her son Conor is a durable power claim attorney for healthcare. The patient has been disabled for quite some time. She has a total of 5 children. No alcohol marijuana or illicit drugs. Code status full code Smoking status: Current every day smoker Spiritual care concerns: No Exam Narrative: GENERAL: Well-appearing, well-nourished, and in no acute distress. Constantly cursing while examining her HEAD: Normocephalic, atraumatic. EYES: PERRLA and EOMI. ENT: Nares clear, no rhinorrhea or epistaxis. Mucous membranes moist. NECK: Supple. CHEST: Clear to auscultation. No respiratory distress. HEART: Regular rate and rhythm. No murmur heard. Normal peripheral pulses. ABDOMEN: Soft, nontender, nondistended, normal active bowel sounds. EXTREMITIES: Normal range of motion. No edema. SKIN: Warm, dry, no rash. NEURO: No focal deficits. Alert and oriented x1. PSYCH: Normal mood and affect. Course Course Emergency Course: Patient remained stable in no discomfort. Discussed with the hospitalist will admit the patient to for further evaluation of lung mass. I discussed with the hospitalist accepted the patient Vital Signs Vital signs: Vital Signs Temperature 36.6 C 09/09/23 08:48 Pulse Rate 94 09/09/23 08:48 Respiratory Rate 22 H 09/09/23 08:48 Blood Pressure 151/68 H 09/09/23 08:48 Pulse Oximetry 94 09/09/23 08:48 Oxygen Delivery Room Air 09/09/23 08:48 Temperature 36.6 C 09/09/23 08:48 Pulse Rate 83 09/09/23 10:16 Respiratory Rate 23 H 09/09/23 10:16 Blood Pressure 142/55 H 09/09/23 10:16 Pulse Oximetry 93 09/09/23 11:53 Oxygen Delivery Nasal Cannula 09/09/23 11:53 Oxygen Flow Rate 2 09/09/23 11:53
--- NOTE | 2023-09-09 12:10 | PM.IMHP ---
H&P: HPI History of Present Illness Date/Time: 09/09/23 12:10 Chief Complaint: Pneumonia Narrative: 88 y/o F presents here for evaluation of pneumonia with PMH of schizophrenia, HTN, and HLD. The patient presents here via EMS from [facility] for general malaise. The patient has recently been treated with Levofloxacin which was prescribed on 08/13/2023 and Augmentin which was prescribed on 08/27/2023 for pneumonia. Per son's report she has had shallow breathing for the last 2-3 weeks. At the beginning of her symptoms she did have a cough that led to one episode of emesis that has not been present since. Son sees her once per week on the weekend. Baseline orientation to self and place, does have some confusion on time and short term memory due to schizophrenia and dementia. Has been more forgetful lately. No recent weight loss noted by son, however she has been eating less in the last month. No family history of cancer beyond son having prostate cancer. The patient is currently unable to provide any meaningful information or endorsement/denial of symptoms. Does not appear in acute distress. Upon arrival to the ED the patient's sat was 94% on RA, later dropped to 84% on RA, and now on 2L NC. Per review of chart, patient has smoking hx but no ETOH or illicit drug use. Initial VS at presentation: 97.8? F, HR 94, RR 22, 151/68, and 94% on RA. Now 93% on 2L nasal cannula. ED workup showed: WBC 14, no anemia, creatinine 1.3 and GFR 39 (previously 1.0 and GFR 53 on 08/12/2023), BNP 1390, and UA unremarkable. CXR showed a masslike consolidation bilaterally and cardiomegaly with mild interstitial edema. Chest CTA showed mild progression in bilateral patchy masslike regions of consolidation of both lungs concerning for pneumonia, malignancy, or combination and by sellar left axillary lymphadenopathy could be reactive, metastatic, or due to lymphoma. Review of Systems Review of Systems: All systems reviewed & are unremarkable except as noted in HPI and below PMFSH Past Medical History Medical History (Updated 09/09/23 @ 15:05 by Lupe Oh, KHADRA) Arthritis Brain TIA CVA (cerebral vascular accident) Dementia GERD (gastroesophageal reflux disease) HTN (hypertension) Hyperlipidemia Macular degeneration Schizophrenia Surgical History Surgical History H/O tubal ligation History of ear surgery Hx of cholecystectomy Family History Family History Mother History of behavioral and mental health problems Social History Social History Social History: the patient tells me that she is allowed 10 cigarettes at the detention daily. She is a . And her son Conor is a durable power nutrition technician for healthcare. The patient has been disabled for quite some time. She has a total of 5 children. No alcohol marijuana or illicit drugs. Code status full code Smoking status: Former smoker Alcohol intake: never Substance use: never Substance use type: does not use Spiritual care concerns: No Meds Home Medications and Allergies Home Medications Medication Instructions Recorded Confirmed Type acetaminophen 325 mg capsule 650 mg PO BID Pain 01/30/21 09/09/23 History atorvastatin 10 mg tablet 10 mg PO HS 01/30/21 09/09/23 History emollient (Vanicream topical) 1 applic topical DAILY 01/30/21 09/09/23 History lithium carbonate 150 mg capsule 150 mg PO DAILY 01/30/21 09/09/23 History risperidone 1 mg/mL oral solution 0.5 mg PO BID 01/30/21 09/09/23 History sodium chloride 0.65 % nasal spray 2 spray intranasal Q12H PRN 01/30/21 09/09/23 History aerosol Congestion oxymetazoline 0.05 % nasal spray 2 spray intranasal Q12H PRN nasal 10/27/22 09/09/23 Rx (12 Hour Nasal Relief [place]) congestion 3 days #22 mL calcium carbonate (Jens-Gest 500 mg PO QID
--- NOTE | 2023-09-09 13:30 | PC.NURSE ---
Spoke with Yanet from [employer], she states if we have issues with compliance for treatment to call [phone] and they will send a janitor helper out to sit with her.
--- NOTE | 2023-09-09 13:45 | ADMGEN ---
This patient, Adarsh Leiva, was admitted to [facility] Surg Room 332-02. Patient/family oriented to hospital policies and general routines including ID bracelet, bed and alarms, visiting hours, pain management, procedures, bathroom and other care routines, personal items, smoking policy, room service/diet, and visiting hours. Information on how to activate the Rapid Response Team has been discussed. Patient/Family are encouraged to report perceived risks to care and to ask questions if they do not understand what they are told or what they should do.
[2023-09-09] MEDS: VANCOMYCIN 1,000 MG/NS 250 ML 1,000 MG/250 ML BAG 250 MG IVPB (14:13)
[2023-09-09] MEDS: IPRATROPIUM 0.5 MG/ALBUTEROL SULFATE 2.5 MG AMPUL.NEB 3 ML INHALATION ×2 (14:49→19:39)
[2023-09-09] MEDS: VANCOMYCIN 1,250 MG/NS 250 ML 1,250 MG/250 ML BAG 166.67 MG IVPB (15:35)
[2023-09-09 15:42] LABS: Procalcitonin 0.1 ng/mL
[2023-09-09] MEDS: MECLIZINE HCL 12.5 MG TABLET PO (16:31)
[2023-09-09] MEDS: CEFEPIME 1 GM/NS 50 ML 1 GM/50 ML BAG IVPB ×2 (16:32→19:57)
[2023-09-09 19:39] LABS: MRSA (PCR) NOT DETECTED (NOT DETECTE)
[2023-09-09] MEDS: AZITHROMYCIN 500 MG/NS 250 ML 500 MG/250 ML BAG 250 MG IVPB (19:52)
[2023-09-09] MEDS: ATORVASTATIN 10 MG TABLET PO (19:57)
[2023-09-09] MEDS: risperiDONE 0.5 MG TABLET PO (19:57)
[2023-09-09] MEDS: TOLNAFTATE 1% POWDER 45 GM BTL 1 APPLIC TOPICAL (19:57)
[2023-09-10] VITALS (11 sets, daily range): BP systolic 147–168; BP diastolic 58–103; PULSE 85–118; RESP 18–20; TEMP 36.8–37.1; O2SAT 88–96
--- NOTE | 2023-09-10 | ECHO_ITS ---
Patient Info Name: Adarsh Leiva Age: 88 years : 1935 Gender: Female Ht: 65 in Wt: 189 lbs BSA: 2.01 m2 HR: 90 bpm BP: 147 / 58 mmHg Heart Rhythm: Sinus Rhythm Technical Quality: Poor Exam Date: 09/10/2023 10:45 AM Exam Location: Echo Lab Patient Status: Inpatient Admit Date: 09/09/2023 Staff Ordering Physician: Nicole Whitehead PA-C Life Insurance Sales Agent: Maynor Rayo RDCS Attending Provider: Nicole Whitehead PA-C Referring Physician: Ventura THORPE; Exam Type: CA echo doppler color flow Study Info Indications - SOB with HX of CHF Complete two-dimensional, color flow and Doppler transthoracic echocardiogram is performed. Reason for Poor Study: poor patient cooperation Summary 1. Complete two-dimensional, color flow and Doppler transthoracic echocardiogram is performed. 2. Normal left ventricular size with mild concentric hypertrophy and hyperdynamic systolic function. 3. Grade 1 diastolic noncompliance. 4. Mildly enlarged left atrium. 5. No significant valvular abnormality. Left Ventricle Left ventricular chamber dimension is normal. Left ventricular systolic function is hyperdynamic, estimated at >70%. There is mild concentric increased left ventricular wall thickness. The left ventricular diastolic function is grade I diastolic dysfunction. Right Ventricle Right ventricular chamber dimension is normal. Left Atria Left atrial chamber dimension is mildly enlarged. Right Atria Right atrial chamber dimension is normal. Aortic Valve The aortic valve is trileaflet. There is mild aortic valve sclerosis. Pulmonic Valve The pulmonic valve is normal. Mitral Valve The mitral valve has normal leaflets. Tricuspid Valve The tricuspid valve leaflets are normal. Pericardium/Pleural The pericardium appears normal. Aorta The aortic root size at the sinus of Valsalva is normal. Left Ventricular Outflow Tract Name Value Normal LVOT 2D LVOT Diameter 2.0 cm LVOT Doppler LVOT Peak Gradient 11 mmHg LVOT Mean Gradient 5 mmHg LVOT VTI 30 cm LVOT VTI/AV VTI Ratio 0.8 LVOT Stroke Volume 93 ml LVOT CO 8.1 l/min LVOT CI 4.0 l/min/m2 Pulmonic Valve Name Value Normal PV Doppler PV Peak Gradient 10 mmHg PV Regurgitation Doppler MI Peak End Diastolic Velocity 110 cm/s Mitral Valve Name Value Normal MV Doppler MV Peak Gradient 11 mmHg
[2023-09-10 07:42] LABS: Basophils Percent Auto 0.3 % (0.2-1.2); Eosinophils Absolute Auto 0.3 K/mm3 (0-0.3); Eosinophils Percent Auto 2.1 % (0-4.4); Hematocrit 34.9 % (37.0-47.0); Hemoglobin 10.1 g/dL (12.0-15.0); Immature Granulocyte Absolute 0.08 K/mm3 (0.00-0.031); Immature Granulocyte Percent A 0.5 % (0-0.5); Lymphocytes Absolute Auto 0.74 K/mm3 (0.9-3.2); Lymphocytes Percent Auto 4.9 % (18.3-44.2); Mean Corpuscular HGB Conc 28.9 g/dl (32-36); Mean Corpuscular Hemoglobin 24.4 pg (26-34); Mean Corpuscular Volume 84.3 fl (80-100); Mean Platelet Volume 11.1 fl (7.4-10.4); Monocytes Absolute Auto 1.2 K/mm3 (0.1-0.6); Monocytes Percent Auto 8.2 % (2.6-8.5); Neutrophils Absolute Auto 12.6 K/mm3 (1.3-6.7); Platelet Count Result 240 k/mm3 (150-375); Red Blood Count 4.14 M/mm3 (4.2-5.4); Red Cell Distribution Width 18.5 % (11.5-14.5)
--- NOTE | 2023-09-10 07:43 | PM.IMPN ---
Progress Note: A&P Assessment and Plan (1) Abnormal chest CT: Code(s): R93.89 - Abnormal findings on diagnostic imaging of other specified body structures Status: Acute Assessment and Plan: - CXR 1: Masslike consolidation bilaterally, slightly improved in the right upper thorax compared with prior study. Differential diagnosis includes pneumonia and malignancy. 2: Cardiomegaly with mild interstitial edema. - Chest CTA 1. Mild progression in bilateral patchy masslike regions of consolidation in both lungs which remains concerning for pneumonia, malignancy or combination thereof. Consider bronchoscopy and/or diagnostic thoracentesis of a small right pleural effusion for further evaluation. 2. Basilar left axillary lymphadenopathy could be reactive, metastatic or due to lymphoma. Consider ultrasound-guided biopsy of the largest left axillary lymph node. - smoking hx, still smoking and used to have 6 smoke breaks per day. Started smoking at age 12. - Oncology consulted, recommending biopsies. Son refuses at this time. Oncology discussed possible hospice/palliative care with son. Will follow up on this in the am. - Will treat possible underlying and/or concurrent PNA - Trend labs (2) Pneumonia: Qualifiers: Laterality: unspecified laterality Lung location: unspecified part of lung Pneumonia type: due to unspecified organism Qualified Code(s): J18.9 - Pneumonia, unspecified organism Code(s): J18.9 - Pneumonia, unspecified organism Status: Acute Assessment and Plan: - CTA and CXR demonstrating patchy masslike regions of consolidation bilaterally, mass verses pneumonia verses combination - failed outpatient p.o. abx: Augmentin and Levaquin - started on azithromycin and ceftriaxone, exchanged to cefepime and vancomycin considering failed outpatient therapies on 09/08 - Complicating Factors: failed outpatient therapy - testing for possible pathogens ordered: MRSA - Negative Urine legionella antigen Urine pneumococcal antigen Mycoplasma IgM - started on CAP tx: azithromycin ceftriaxone, transitioned to cefepime and vancomycin considering failed outpatient therapies on 09/08 - Gentle IV fluid resuscitation - Viral PCR: negative - Sputum culture ordered, obtain if possible - no supplemental O2 requirement on admission, now requiring 2L. Oxygen via NC; wean as tolerated. Keep SpO2 greater than 90% - Monitor vital signs, I&Os, neuro status and patient is a fall risk - Follow WBC, serum electrolytes, temperature curves and cultures (3) JOE (acute kidney injury): Code(s): N17.9 - Acute kidney failure, unspecified Status: Acute Assessment and Plan: - creatinine 1.3 and GFR 39 on admission, previously 1.0 and GFR 53 on 08/12/2023 - Creatinine improving with IV fluids - continue IV fluids: 75 mL/hour - trend renal function - trend electrolytes, correct as needed - suspect mild injury due to poor p.o. intake, dietitian consulted and IV fluids in place (4) Anemia: Code(s): D64.9 - Anemia, unspecified Status: Acute Assessment and Plan: H/H WNL on admission. Patient now mildly anemic on am labs likely dilutional as patient was started on IV fluids. No signs of active bleeding. Iron panel revealed GALE. Patient given IV venofer and started on iron supplementation. - Continue to monitor - Ferrous sulfate 325 mg BID (5) Schizophrenia: Code(s): F20.9 - Schizophrenia, unspecified Status: Acute Assessment and Plan: Well controlled on home medications. - Continue lithium 150 mg daily, assess levels - Continue risperidone 0.5 mg BID (6) (HFpEF) heart failure with preserved ejection fraction: Code(s): I50.30 - Unspecified diastolic (congestive) heart failure Status: Acute Assessment and Plan: - Symptoms: Shortness of breath and bilateral lower extremitiy 3+ pitting edema - Current medications: none - BNP: 1390 - EKG: sinus rhy
[2023-09-10 08:00] LABS: Anion Gap 4 mmol/L (4-12); Blood Urea Nitrogen 21 mg/dL (7-17); Calcium 10.1 mg/dL (8.4-10.2); Carbon Dioxide 25 mmol/L (22-30); Chloride 111 mmol/L (98-107); Estimated CRCL calculation 35 ml/min; Estimated Glomerular Filt Rate 47; Glucose 96 mg/dL (65-110); Potassium 3.7 mmol/L (3.4-5.0); Sodium 140 mmol/L (137-145)
[2023-09-10 08:42] LABS: Lithium 0.4 mmol/L (0.6-1.2)
[2023-09-10 08:47] LABS: Iron 13 ug/dL (37-170)
[2023-09-10] MEDS: CEFEPIME 1 GM/NS 50 ML 1 GM/50 ML BAG IVPB ×2 (08:54→21:21)
[2023-09-10] MEDS: LITHIUM CARBONATE 150 MG CAPSULE PO (08:54)
[2023-09-10] MEDS: TOLNAFTATE 1% POWDER 45 GM BTL 1 APPLIC TOPICAL ×2 (08:55→21:21)
[2023-09-10] MEDS: risperiDONE 0.5 MG TABLET PO ×2 (08:55→21:21)
[2023-09-10] MEDS: MECLIZINE HCL 12.5 MG TABLET PO (08:55)
[2023-09-10] MEDS: LORATADINE 10 MG TABLET PO (08:55)
[2023-09-10] MEDS: EUCERIN CREAM 120 GM JAR 1 APPLIC TOPICAL (08:55)
[2023-09-10 08:56] LABS: Percent Iron Saturation 7 % (20-50)
[2023-09-10] MEDS: CYANOCOBALAMIN 250 MCG TABLET PO (08:56)
[2023-09-10 09:07] LABS: CRP 12.6 mg/dL (<1.0)
[2023-09-10 09:19] LABS: Hypochromasia 1+; Platelet Estimate Adequate (Adequate); Schistocytes None Seen
--- NOTE | 2023-09-10 09:34 | PCRCNOTE ---
pt refused 8AM tx, will resume tx at 2PM
[2023-09-10 09:37] LABS: Influenza A QL RT-PCR Negative (Negative); Influenza B QL RT-PCR Negative (Negative); RSV RNA, RT-PCR Negative (Negative); SARS-CoV-2 RNA PCR Negative (Negative)
[2023-09-10 09:38] LABS: Erythrocyte Sedimentation Rate 29 mm/hr (0-20)
[2023-09-10 09:53] LABS: Folic Acid 2.6 ng/mL (2.76->20)
--- NOTE | 2023-09-10 09:56 | PDONCCN ---
HPI - Date of Consult Date/Time: 09/10/23 14:21 <RuddyLizandro Hailey - 09/10/23 14:25> 09/10/23 09:56 <Bri Gallegos - 09/10/23 10:01> Requesting Physician: Nicole Whitehead PA-C <Lizandro Fox - 09/10/23 14:25> Nicole Whitehead PA-C <Bri Gallegos - 09/10/23 10:01> Primary Care Provider: UNKNOWN,DOCTOR <RuddyLizandroyun Hart - 09/10/23 14:25> UNKNOWN,DOCTOR <RosyBri - 09/10/23 10:01> - Consult Narrative Reason for consult: Lung Cancer <RosyBri - 09/10/23 10:01> Narrative: Adarsh Leiva is a 88 year old female <Ruddy,Lizandroyun Hart - 09/10/23 14:25> Adarsh Leiva is a 88 year old female with a past medical history of HTN, HLD, schizophrenia, and L ear deafness who presented from [facility] for malaise and has been being treated for PNA. They felt as if she was getting worse and brought her over. Patient is not oriented and most information has been taken from chart review and son d/t mental status. I have personally called son to discuss history as well as plan. Son reports that patient has been more fatigued, lethargic, and short of breath over the last few weeks. He has not noticed any weight loss but he appetite has decreased. Patient denies shortness of breath or cough and is currently on 2L NC. She is not typically on oxygen. Son reports she has been smoking since she was 10yrs old. Denies any personal or family history of malignancy. Labs today are notable for WBC 15, Hgb 10.1, Hct 34.9, Plt 240,000. <Bri Gallegos - 09/10/23 10:01> Review of Systems - Review of Systems unobtainable due to mental status <Bri Gallegos - 09/10/23 10:01> [facility] Medical History: Medical History (Last Updated 09/10/23 @ 10:17 by Nicole Whitehead PA-C) (HFpEF) heart failure with preserved ejection fraction Arthritis Brain TIA CVA (cerebral vascular accident) Dementia GERD (gastroesophageal reflux disease) HTN (hypertension) Hyperlipidemia Macular degeneration Schizophrenia <Lizandro Fox. - 09/10/23 14:25> Medical History (Last Updated 09/10/23 @ 10:17 by Nicole Whitehead PA-C) (HFpEF) heart failure with preserved ejection fraction Arthritis Brain TIA CVA (cerebral vascular accident) Dementia GERD (gastroesophageal reflux disease) HTN (hypertension) Hyperlipidemia Macular degeneration Schizophrenia <Bri Gallegos - 09/10/23 13:11> Surgical History: Surgical History (Last Reviewed 09/09/23 @ 12:45 by Lupe Oh APRN) H/O tubal ligation History of ear surgery Hx of cholecystectomy <Lizandro FoxLisbeth - 09/10/23 14:25> Surgical History (Last Reviewed 09/09/23 @ 12:45 by Lupe Oh APRN) H/O tubal ligation History of ear surgery Hx of cholecystectomy <Bri Gallegos - 09/10/23 10:01> Family History: Family History (Last Reviewed 09/09/23 @ 12:45 by Lupe Oh APRN) Mother History of behavioral and mental health problems <Lizandro Fox. - 09/10/23 14:25> Family History (Last Reviewed 09/09/23 @ 12:45 by Lupe Oh APRN) Mother History of behavioral and mental health problems <Connor Gallegosne - 09/10/23 10:01> - Social History Social History: Social History (Last Reviewed 09/09/23 @ 12:45 by Lupe Oh APRN) Alcohol Use: Alcohol intake: never Substance Use: Substance use: never Substance use type: does not use Others: Spiritual care concerns: No Smoking Status: Smoking status: Former smoker <Lizandro FoxLisbeth - 09/10/23 14:25> Social History (Last Reviewed 09/09/23 @ 12:45 by Lupe Oh APRN) Alcohol Use: Alcohol intake: never Substance Use: Substance use: never Substance use type: does not use Others: Spiritual care concerns: No Smoking Status: Smoking status: Former smoker
[2023-09-10] MEDS: IRON SUCROSE COMPLEX 500 MG in SODIUM CHLORIDE 0.9% IV 250 ML 79 MG IVPB (13:59)
[2023-09-10] MEDS: IPRATROPIUM 0.5 MG/ALBUTEROL SULFATE 2.5 MG AMPUL.NEB 3 ML INHALATION ×2 (14:28→21:12)
[2023-09-10] MEDS: ATORVASTATIN 10 MG TABLET PO (21:21)
[2023-09-11] VITALS (13 sets, daily range): BP systolic 142–155; BP diastolic 84–91; PULSE 65–101; RESP 18–24; TEMP 36.1–36.9; O2SAT 92–95
[2023-09-11] MEDS: VANCOMYCIN 1,250 MG/NS 250 ML 1,250 MG/250 ML BAG 125 MG IVPB (01:54)
[2023-09-11] MEDS: IPRATROPIUM 0.5 MG/ALBUTEROL SULFATE 2.5 MG AMPUL.NEB 3 ML INHALATION ×4 (02:35→20:45)
[2023-09-11 07:00] LABS: Estimated CRCL calculation 43 ml/min; Estimated Glomerular Filt Rate 59
[2023-09-11] MEDS: MECLIZINE HCL 12.5 MG TABLET PO ×2 (09:03→17:51)
[2023-09-11] MEDS: LORATADINE 10 MG TABLET PO (09:03)
[2023-09-11] MEDS: CEFEPIME 1 GM/NS 50 ML 1 GM/50 ML BAG IVPB (09:03)
[2023-09-11] MEDS: CYANOCOBALAMIN 250 MCG TABLET PO (09:03)
[2023-09-11] MEDS: TOLNAFTATE 1% POWDER 45 GM BTL 1 APPLIC TOPICAL ×2 (09:03→21:28)
[2023-09-11] MEDS: EUCERIN CREAM 120 GM JAR 1 APPLIC TOPICAL (09:03)
[2023-09-11] MEDS: LITHIUM CARBONATE 150 MG CAPSULE PO (09:03)
[2023-09-11] MEDS: FERROUS SULFATE 325 MG TABLET DR PO ×2 (09:03→17:51)
[2023-09-11] MEDS: risperiDONE 0.5 MG TABLET PO (09:03)
--- NOTE | 2023-09-11 09:06 | PM.IMPN ---
Progress Note: A&P Assessment and Plan (1) Abnormal chest CT: Code(s): R93.89 - Abnormal findings on diagnostic imaging of other specified body structures Status: Acute Assessment and Plan: - CXR 1: Masslike consolidation bilaterally, slightly improved in the right upper thorax compared with prior study. Differential diagnosis includes pneumonia and malignancy. 2: Cardiomegaly with mild interstitial edema. - Chest CTA 1. Mild progression in bilateral patchy masslike regions of consolidation in both lungs which remains concerning for pneumonia, malignancy or combination thereof. Consider bronchoscopy and/or diagnostic thoracentesis of a small right pleural effusion for further evaluation. 2. Basilar left axillary lymphadenopathy could be reactive, metastatic or due to lymphoma. Consider ultrasound-guided biopsy of the largest left axillary lymph node. - smoking hx, still smoking and used to have 6 smoke breaks per day. Started smoking at age 12. - Oncology consulted, recommending biopsies. Son refuses at this time. Oncology discussed possible hospice/palliative care with son. Will follow up on this in the am. - Will treat possible underlying and/or concurrent PNA - Trend labs (2) Pneumonia: Qualifiers: Laterality: unspecified laterality Lung location: unspecified part of lung Pneumonia type: due to unspecified organism Qualified Code(s): J18.9 - Pneumonia, unspecified organism Code(s): J18.9 - Pneumonia, unspecified organism Status: Acute Assessment and Plan: - CTA and CXR demonstrating patchy masslike regions of consolidation bilaterally, mass verses pneumonia verses combination - failed outpatient p.o. abx: Augmentin and Levaquin - started on azithromycin and ceftriaxone, exchanged to cefepime and vancomycin considering failed outpatient therapies on 09/08, MRSA - DC vanc - Complicating Factors: failed outpatient therapy - Testing for possible pathogens ordered: MRSA - Negative Urine legionella antigen Urine pneumococcal antigen Mycoplasma IgM - started on CAP tx: azithromycin ceftriaxone, transitioned to cefepime and vancomycin considering failed outpatient therapies on 09/08 - Gentle IV fluid resuscitation - Viral PCR: negative - Sputum culture ordered, obtain if possible - no supplemental O2 requirement on admission, now requiring 2L. Oxygen via NC; wean as tolerated. Keep SpO2 greater than 90% - Monitor vital signs, I&Os, neuro status and patient is a fall risk - Follow WBC, serum electrolytes, temperature curves and cultures (3) JOE (acute kidney injury): Code(s): N17.9 - Acute kidney failure, unspecified Status: Acute Assessment and Plan: - creatinine 1.3 and GFR 39 on admission, previously 1.0 and GFR 53 on 08/12/2023 - Creatinine improved with IV fluids, JOE resolved. IV fluids DC. - trend renal function - trend electrolytes, correct as needed - suspect mild injury due to poor p.o. intake, dietitian consulted and IV fluids in place (4) Anemia: Code(s): D64.9 - Anemia, unspecified Status: Acute Assessment and Plan: H/H WNL on admission. Patient now mildly anemic on am labs likely dilutional as patient was started on IV fluids. No signs of active bleeding. Iron panel revealed GALE. Patient given IV venofer and started on iron supplementation. - Continue to monitor - Ferrous sulfate 325 mg BID (5) Schizophrenia: Code(s): F20.9 - Schizophrenia, unspecified Status: Acute Assessment and Plan: Well controlled on home medications. - Continue lithium 150 mg daily, assess levels - Continue risperidone 0.5 mg BID (6) (HFpEF) heart failure with preserved ejection fraction: Code(s): I50.30 - Unspecified diastolic (congestive) heart failure Status: Acute Assessment and Plan: - Symptoms: Shortness of breath and bilateral lower extremitiy 3+ pitting edema - Current medications: none - BNP: 1390 - EKG:
[2023-09-11 09:21] LABS: Basophils Absolute Auto 0.1 K/mm3 (0.0-0.1); Basophils Percent Auto 0.3 % (0.2-1.2); Eosinophils Absolute Auto 0.2 K/mm3 (0-0.3); Eosinophils Percent Auto 1.5 % (0-4.4); Hematocrit 33.5 % (37.0-47.0); Hemoglobin 10.1 g/dL (12.0-15.0); Immature Granulocyte Absolute 0.06 K/mm3 (0.00-0.031); Immature Granulocyte Percent A 0.4 % (0-0.5); Lymphocytes Absolute Auto 0.64 K/mm3 (0.9-3.2); Lymphocytes Percent Auto 4.3 % (18.3-44.2); Mean Corpuscular HGB Conc 30.1 g/dl (32-36); Mean Corpuscular Hemoglobin 25.1 pg (26-34); Mean Corpuscular Volume 83.1 fl (80-100); Mean Platelet Volume 11.8 fl (7.4-10.4); Monocytes Percent Auto 6.9 % (2.6-8.5); Neutrophils Percent Auto 86.6 % (45.5-73.1); Platelet Count Result 232 k/mm3 (150-375); Red Blood Count 4.03 M/mm3 (4.2-5.4); Red Cell Distribution Width 18.4 % (11.5-14.5)
[2023-09-11 09:34] LABS: Alanine Aminotransferase 9 U/L (6-35); Albumin Level 2.5 g/dL (3.5-5.1); Alkaline Phosphatase 34 U/L (38-126); Anion Gap 3 mmol/L (4-12); Aspartate Amino Transferase 16 U/L (14-36); Bilirubin,Total 0.4 mg/dL (0.2-1.3); Blood Urea Nitrogen 14 mg/dL (7-17); Calcium 9.9 mg/dL (8.4-10.2); Carbon Dioxide 25 mmol/L (22-30); Chloride 111 mmol/L (98-107); Estimated CRCL calculation 43 ml/min; Estimated Glomerular Filt Rate 59; Glucose 104 mg/dL (65-110); Potassium 3.4 mmol/L (3.4-5.0); Sodium 139 mmol/L (137-145)
--- NOTE | 2023-09-11 13:00 | PCSTNOTE ---
Please refer to the Bedside Swallow Evaluation in the EMR. Please note, silent aspiration cannot be ruled out at bedside.
--- NOTE | 2023-09-11 14:28 | PC.NURSE ---
On 09/11/23, the HEARING AID FITTER, Francia, provided care and completed [facility] documentation on this patient. I have reviewed the HEARING AID FITTER's documentation and agree with the findings.
[2023-09-12] VITALS (12 sets, daily range): BP systolic 150–155; BP diastolic 62–92; PULSE 86–125; RESP 18–22; TEMP 35.8–36.1; O2SAT 90–100
[2023-09-12 01:34] LABS: Vancomycin Trough 14.4 ug/mL (10.0-20.0)
[2023-09-12 06:08] LABS: Basophils Absolute Auto 0.1 K/mm3 (0.0-0.1); Basophils Percent Auto 0.5 % (0.2-1.2); Eosinophils Absolute Auto 0.5 K/mm3 (0-0.3); Hematocrit 39.3 % (37.0-47.0); Hemoglobin 11.5 g/dL (12.0-15.0); Immature Granulocyte Absolute 0.11 K/mm3 (0.00-0.031); Immature Granulocyte Percent A 0.7 % (0-0.5); Lymphocytes Percent Auto 3.9 % (18.3-44.2); Mean Corpuscular HGB Conc 29.3 g/dl (32-36); Mean Corpuscular Hemoglobin 25.1 pg (26-34); Mean Corpuscular Volume 85.8 fl (80-100); Monocytes Absolute Auto 1.1 K/mm3 (0.1-0.6); Monocytes Percent Auto 7.3 % (2.6-8.5); Neutrophils Absolute Auto 13.1 K/mm3 (1.3-6.7); Neutrophils Percent Auto 84.6 % (45.5-73.1); Platelet Count Result 263 k/mm3 (150-375); Red Blood Count 4.58 M/mm3 (4.2-5.4); Red Cell Distribution Width 18.3 % (11.5-14.5); White Blood Count 15.5 K/mm3 (4.5-10.0)
[2023-09-12 06:21] LABS: Alanine Aminotransferase 10 U/L (6-35); Albumin Level 2.8 g/dL (3.5-5.1); Alkaline Phosphatase 41 U/L (38-126); Anion Gap 5 mmol/L (4-12); Aspartate Amino Transferase 14 U/L (14-36); Bilirubin,Total 0.4 mg/dL (0.2-1.3); Blood Urea Nitrogen 17 mg/dL (7-17); Calcium 10.4 mg/dL (8.4-10.2); Carbon Dioxide 24 mmol/L (22-30); Chloride 112 mmol/L (98-107); Estimated CRCL calculation 43 ml/min; Estimated Glomerular Filt Rate 59; Glucose 129 mg/dL (65-110); Potassium 3.2 mmol/L (3.4-5.0); Sodium 141 mmol/L (137-145)
[2023-09-12] MEDS: IPRATROPIUM 0.5 MG/ALBUTEROL SULFATE 2.5 MG AMPUL.NEB 3 ML INHALATION ×3 (07:55→19:51)
--- NOTE | 2023-09-12 14:10 | PM.IMPN ---
Progress Note: A&P Assessment and Plan (1) Abnormal chest CT: Code(s): R93.89 - Abnormal findings on diagnostic imaging of other specified body structures Status: Acute Assessment and Plan: - CXR 1: Masslike consolidation bilaterally, slightly improved in the right upper thorax compared with prior study. Differential diagnosis includes pneumonia and malignancy. 2: Cardiomegaly with mild interstitial edema. - Chest CTA 1. Mild progression in bilateral patchy masslike regions of consolidation in both lungs which remains concerning for pneumonia, malignancy or combination thereof. Consider bronchoscopy and/or diagnostic thoracentesis of a small right pleural effusion for further evaluation. 2. Basilar left axillary lymphadenopathy could be reactive, metastatic or due to lymphoma. Consider ultrasound-guided biopsy of the largest left axillary lymph node. - smoking hx, still smoking and used to have 6 smoke breaks per day. Started smoking at age 12. - Oncology consulted, recommending biopsies. Son refuses at this time. Oncology discussed possible hospice/palliative care with son. Will follow up on this in the am. - Will treat possible underlying and/or concurrent PNA - Trend labs (2) Pneumonia: Qualifiers: Laterality: unspecified laterality Lung location: unspecified part of lung Pneumonia type: due to unspecified organism Qualified Code(s): J18.9 - Pneumonia, unspecified organism Code(s): J18.9 - Pneumonia, unspecified organism Status: Acute Assessment and Plan: Leukocytosis continues to be approximately 15 on daily labs. Possible that this is inflammatory from underlying malignancy. Patient remains on IV antibiotic therapy and continues to require supplemental O2. - CTA and CXR demonstrating patchy masslike regions of consolidation bilaterally, mass verses pneumonia verses combination - failed outpatient p.o. abx: Augmentin and Levaquin - started on azithromycin and ceftriaxone, exchanged to cefepime and vancomycin considering failed outpatient therapies on 09/08, MRSA - DC vanc - Complicating Factors: failed outpatient therapy - Testing for possible pathogens ordered: MRSA - Negative Urine legionella antigen Urine pneumococcal antigen Mycoplasma IgM - started on CAP tx: azithromycin ceftriaxone, transitioned to cefepime and vancomycin considering failed outpatient therapies on 09/08 - Gentle IV fluid resuscitation - Viral PCR: negative - Sputum culture ordered, obtain if possible - no supplemental O2 requirement on admission, now requiring 2L. Oxygen via NC; wean as tolerated. Keep SpO2 greater than 90% - Monitor vital signs, I&Os, neuro status and patient is a fall risk - Follow WBC, serum electrolytes, temperature curves and cultures (3) JOE (acute kidney injury): Code(s): N17.9 - Acute kidney failure, unspecified Status: Acute Assessment and Plan: - creatinine 1.3 and GFR 39 on admission, previously 1.0 and GFR 53 on 08/12/2023 - Creatinine improved with IV fluids, JOE resolved. IV fluids DC. - trend renal function - trend electrolytes, correct as needed - suspect mild injury due to poor p.o. intake, dietitian consulted and IV fluids in place (4) Anemia: Code(s): D64.9 - Anemia, unspecified Status: Acute Assessment and Plan: H/H WNL on admission. Patient now mildly anemic on am labs likely dilutional as patient was started on IV fluids. No signs of active bleeding. Iron panel revealed GALE. Patient given IV venofer and started on iron supplementation. - Continue to monitor - Ferrous sulfate 325 mg BID (5) Schizophrenia: Code(s): F20.9 - Schizophrenia, unspecified Status: Acute Assessment and Plan: Well controlled on home medications. - Continue lithium 150 mg daily, assess levels - Continue risperidone 0.5 mg BID (6) (HFpEF) heart failure with preserved ejection fraction: Code(s): I50.30 - Unspecified diasto
[2023-09-12] MEDS: TOLNAFTATE 1% POWDER 45 GM BTL 1 APPLIC TOPICAL ×2 (15:03→20:21)
[2023-09-12] MEDS: CEFEPIME 1 GM/NS 50 ML 1 GM/50 ML BAG IVPB ×2 (15:15→20:15)
[2023-09-12] MEDS: EUCERIN CREAM 120 GM JAR 1 APPLIC TOPICAL (17:24)
[2023-09-12] MEDS: risperiDONE 0.5 MG TABLET PO (20:21)
[2023-09-12] MEDS: ATORVASTATIN 10 MG TABLET PO (20:21)
--- NOTE | 2023-09-12 20:36 | ECG_ITS ---
Test Date: 2023-09-12 20:55:07 Measurements Intervals [place] Rate: 122 P: 42 NV: 127 QRS: 18 QRSD: 78 T: 93 QT: 240 QTc: 343 Interpretive Statements SINUS TACHYCARDIA WITH FREQUENT SUPRAVENTRICULAR PREMATURE COMPLEXES LOW QRS VOLTAGE IN PRECORDIAL LEADS [QRS DEFLECTION < 1.0 mV IN CHEST LEADS] NONSPECIFIC T-WAVE ABNORMALITY ABNORMAL RHYTHM ECG Compared to ECG 09/09/2023 08:56:27 PATIENT IS MORE TACHYCARDIC WITH PACS VOLTAGE OF LEFT VENTRICULAR HYPERTROPHY IS NO LONGER SEEN Electronically Signed On 09-13-2023 15:10:57 CDT by Kody Salinas M.D.
[2023-09-12] MEDS: methylPREDNISolone SOD SUCC 125 MG VIAL 60 MG IV PUSH (21:38)
[2023-09-12 21:49] LABS: Anion Gap 3 mmol/L (4-12); Blood Urea Nitrogen 25 mg/dL (7-17); Calcium 10.6 mg/dL (8.4-10.2); Carbon Dioxide 27 mmol/L (22-30); Chloride 113 mmol/L (98-107); Estimated CRCL calculation 39 ml/min; Estimated Glomerular Filt Rate 53; Glucose 144 mg/dL (65-110); Magnesium 2.1 mg/dL (1.6-2.3); Potassium 3.5 mmol/L (3.4-5.0); Sodium 143 mmol/L (137-145)
[2023-09-12 21:58] LABS: NT Pro B Type Natriuretic Pept 6540 pg/mL (19.9-100)
--- NOTE | 2023-09-12 23:36 | PM.EVENT ---
Event Note Event Note Event Note: Change in status. Per nurse, the patient has increasing oxygen requirements, now up to 5 L, and she has become tachycardic in the low 100s. EKG shows sinus tachycardia with frequent ectopy. The tracing is poor quality in the inferior leads were unable to be interpreted accurately. The patient did have some wheezing on exam and was given a DuoNeb and Solu-Medrol and she seemed to improve with regards to her breathing after that. Repeat chest x-ray continue to show bilateral pneumonia without obvious change on my read. Chest CT with contrast was done 3 days ago home at was negative for PE. She has been on SCDs for DVT prophylaxis and given the new tachycardia, increasing oxygen requirements, and possible lung mass a PE needs to be ruled out and a chest CTA has been ordered.
[2023-09-13] VITALS (13 sets, daily range): BP systolic 137–153; BP diastolic 55–88; PULSE 84–127; RESP 18–22; TEMP 35.7–36.8; O2SAT 92–99
--- NOTE | 2023-09-13 02:37 | PCRCNOTE ---
Patient refused breathing TX. She stated she can breath.
[2023-09-13 06:17] LABS: Basophils Percent Auto 0.3 % (0.2-1.2); Hematocrit 40.3 % (37.0-47.0); Hemoglobin 11.3 g/dL (12.0-15.0); Immature Granulocyte Absolute 0.09 K/mm3 (0.00-0.031); Immature Granulocyte Percent A 0.7 % (0-0.5); Lymphocytes Absolute Auto 0.49 K/mm3 (0.9-3.2); Lymphocytes Percent Auto 3.6 % (18.3-44.2); Mean Corpuscular Hemoglobin 24.4 pg (26-34); Mean Platelet Volume 11.4 fl (7.4-10.4); Monocytes Absolute Auto 0.1 K/mm3 (0.1-0.6); Monocytes Percent Auto 0.7 % (2.6-8.5); Neutrophils Absolute Auto 12.9 K/mm3 (1.3-6.7); Neutrophils Percent Auto 94.7 % (45.5-73.1); Platelet Count Result 298 k/mm3 (150-375); Red Blood Count 4.63 M/mm3 (4.2-5.4); Red Cell Distribution Width 18.5 % (11.5-14.5); White Blood Count 13.7 K/mm3 (4.5-10.0)
[2023-09-13 06:26] LABS: Alanine Aminotransferase 12 U/L (6-35); Albumin Level 3.2 g/dL (3.5-5.1); Alkaline Phosphatase 44 U/L (38-126); Anion Gap 7 mmol/L (4-12); Aspartate Amino Transferase 14 U/L (14-36); Bilirubin,Total 0.4 mg/dL (0.2-1.3); Blood Urea Nitrogen 23 mg/dL (7-17); Calcium 10.6 mg/dL (8.4-10.2); Carbon Dioxide 25 mmol/L (22-30); Chloride 111 mmol/L (98-107); Estimated CRCL calculation 43 ml/min; Estimated Glomerular Filt Rate 59; Glucose 171 mg/dL (65-110); Potassium 3.8 mmol/L (3.4-5.0); Sodium 143 mmol/L (137-145)
[2023-09-13 06:49] LABS: Hypochromasia 1+; Platelet Estimate Adequate (Adequate); Schistocytes Rare
[2023-09-13 06:50] LABS: Burr Cells 1+
[2023-09-13] MEDS: IPRATROPIUM 0.5 MG/ALBUTEROL SULFATE 2.5 MG AMPUL.NEB 3 ML INHALATION ×3 (07:56→20:02)
--- NOTE | 2023-09-13 15:01 | PM.IMPN ---
Progress Note: A&P Assessment and Plan (1) Hospice care: Code(s): Z51.5 - Encounter for palliative care Status: Acute Assessment and Plan: Son plans on patient going hospice moving forward. [facility] evaluated patient, consent forms being sent to son. (2) Abnormal chest CT: Code(s): R93.89 - Abnormal findings on diagnostic imaging of other specified body structures Status: Acute Assessment and Plan: - CXR 1: Masslike consolidation bilaterally, slightly improved in the right upper thorax compared with prior study. Differential diagnosis includes pneumonia and malignancy. 2: Cardiomegaly with mild interstitial edema. - Chest CTA 1. Mild progression in bilateral patchy masslike regions of consolidation in both lungs which remains concerning for pneumonia, malignancy or combination thereof. Consider bronchoscopy and/or diagnostic thoracentesis of a small right pleural effusion for further evaluation. 2. Basilar left axillary lymphadenopathy could be reactive, metastatic or due to lymphoma. Consider ultrasound-guided biopsy of the largest left axillary lymph node. - smoking hx, still smoking and used to have 6 smoke breaks per day. Started smoking at age 12. - Oncology consulted, recommending biopsies. Son refuses at this time. Oncology discussed possible hospice/palliative care with son. Will follow up on this in the am. - Will treat possible underlying and/or concurrent PNA - Trend labs (3) Pneumonia: Qualifiers: Laterality: unspecified laterality Lung location: unspecified part of lung Pneumonia type: due to unspecified organism Qualified Code(s): J18.9 - Pneumonia, unspecified organism Code(s): J18.9 - Pneumonia, unspecified organism Status: Acute Assessment and Plan: Leukocytosis continues to be approximately 15 on daily labs. Possible that this is inflammatory from underlying malignancy. Patient remains on IV antibiotic therapy and continues to require supplemental O2. - CTA and CXR demonstrating patchy masslike regions of consolidation bilaterally, mass verses pneumonia verses combination - failed outpatient p.o. abx: Augmentin and Levaquin - started on azithromycin and ceftriaxone, exchanged to cefepime and vancomycin considering failed outpatient therapies on 09/08, MRSA - DC vanc - Complicating Factors: failed outpatient therapy - Testing for possible pathogens ordered: MRSA - Negative Urine legionella antigen Urine pneumococcal antigen Mycoplasma IgM - started on CAP tx: azithromycin ceftriaxone, transitioned to cefepime and vancomycin considering failed outpatient therapies on 09/08 - Gentle IV fluid resuscitation - Viral PCR: negative - Sputum culture ordered, obtain if possible - no supplemental O2 requirement on admission, now requiring 2L. Oxygen via NC; wean as tolerated. Keep SpO2 greater than 90% - Monitor vital signs, I&Os, neuro status and patient is a fall risk - Follow WBC, serum electrolytes, temperature curves and cultures (4) JOE (acute kidney injury): Code(s): N17.9 - Acute kidney failure, unspecified Status: Acute Assessment and Plan: - creatinine 1.3 and GFR 39 on admission, previously 1.0 and GFR 53 on 08/12/2023 - Creatinine improved with IV fluids, JOE resolved. IV fluids DC. - trend renal function - trend electrolytes, correct as needed - suspect mild injury due to poor p.o. intake, dietitian consulted and IV fluids in place (5) Anemia: Code(s): D64.9 - Anemia, unspecified Status: Acute Assessment and Plan: H/H WNL on admission. Patient now mildly anemic on am labs likely dilutional as patient was started on IV fluids. No signs of active bleeding. Iron panel revealed GALE. Patient given IV venofer and started on iron supplementation. - Continue to monitor - Ferrous sulfate 325 mg BID (6) Schizophrenia: Code(s): F20.9 - Schizophrenia, unspecified Status: Acute Assessment and P
[2023-09-13] MEDS: TOLNAFTATE 1% POWDER 45 GM BTL 1 APPLIC TOPICAL ×2 (17:51→21:35)
[2023-09-13] MEDS: EUCERIN CREAM 120 GM JAR 1 APPLIC TOPICAL (17:51)
[2023-09-14 01:23] LABS: Legionella pneumophila Ag Ur NOT DETECTED
[2023-09-14] MEDS: IPRATROPIUM 0.5 MG/ALBUTEROL SULFATE 2.5 MG AMPUL.NEB 3 ML INHALATION ×2 (02:03→07:30)
[2023-09-14 02:04] VITALS: PULSE 101; RESP 18
[2023-09-14 02:31] VITALS: PULSE 110; RESP 18
[2023-09-14 06:00] VITALS: PULSE 115; RESP 24; TEMP 36.4; O2SAT 98
[2023-09-14 06:32] LABS: Hematocrit 40.1 % (37.0-47.0); Hemoglobin 11.3 g/dL (12.0-15.0); Mean Corpuscular HGB Conc 28.2 g/dl (32-36); Mean Corpuscular Hemoglobin 24.8 pg (26-34); Mean Corpuscular Volume 88.1 fl (80-100); Mean Platelet Volume 11.3 fl (7.4-10.4); Platelet Count Result 346 k/mm3 (150-375); Red Blood Count 4.55 M/mm3 (4.2-5.4); Red Cell Distribution Width 18.6 % (11.5-14.5); White Blood Count 22.4 K/mm3 (4.5-10.0)
[2023-09-14 06:47] LABS: Alanine Aminotransferase 14 U/L (6-35); Albumin Level 3.1 g/dL (3.5-5.1); Alkaline Phosphatase 42 U/L (38-126); Anion Gap 3 mmol/L (4-12); Aspartate Amino Transferase 20 U/L (14-36); Bilirubin,Total 0.4 mg/dL (0.2-1.3); Blood Urea Nitrogen 27 mg/dL (7-17); Calcium 10.7 mg/dL (8.4-10.2); Carbon Dioxide 28 mmol/L (22-30); Chloride 112 mmol/L (98-107); Estimated CRCL calculation 43 ml/min; Estimated Glomerular Filt Rate 59; Glucose 149 mg/dL (65-110); Potassium 3.5 mmol/L (3.4-5.0); Sodium 143 mmol/L (137-145)
[2023-09-14 07:30] VITALS: PULSE 116; RESP 23; O2SAT 96
[2023-09-14 07:41] VITALS: PULSE 119; RESP 23
[2023-09-14 09:03] LABS: Anisocytosis 1+; Band Neutrophils Percent 3 % (0-6); Hypochromasia 1+; Lymphocytes Absolute Manual 0.67 K/mm3 (1.1-4.5); Monocytes Absolute Manual 0.67 K/mm3 (0.1-0.90); Monocytes Percent Manual 3 % (3-9); Neutrophils Absolute Manual 21.05 K/mm3 (1.7-7.2); Neutrophils Percent Manual 91 % (46-73); Platelet Estimate Adequate (Adequate); Total Cells Counted 100
[2023-09-14 09:04] LABS: Schistocytes None Seen
[2023-09-14] MEDS: CEFEPIME 1 GM/NS 50 ML 1 GM/50 ML BAG IVPB (10:29)
[2023-09-14] MEDS: EUCERIN CREAM 120 GM JAR 1 APPLIC TOPICAL (10:34)
[2023-09-14] MEDS: TOLNAFTATE 1% POWDER 45 GM BTL 1 APPLIC TOPICAL (10:34)
--- NOTE | 2023-09-14 11:05 | PCNFU ---
Nutrition Follow-Up Complete: Suboptimal po intake related to reduced appetite as evidenced by report Goal:PO intake 50% or greater for meals and supplements Pt current nutrition is minced and moist level 5, Ensure compact BID in place. Nutrition recommendation: continue with current plan of care Last recorded weight is 86 kg. Bowel Motility: No BM recorded at this time Labs Reviewed: Hgb:11.3, alb:3.1, BUN:27, Glu:149 Meds Noted: Skin:WNL Additional Notes: Pt continues on a minced and moist level 5 diet, intake varied 0-100%. noted family is wishing to proceed with hospice care at this time. Monitor intake, wt, labs. Follow up in 7 days.
--- NOTE | 2023-09-14 15:52 | PC.NURSE ---
Addendum entered by Abby Arzate RN 09/14/23 16:33: UPDATE: TOD [id number] verified by charge auditor K. Cox Original Note: Patient in bed for morning assessment. She is restless and says she is hurting but cannot articulate where. She refuses to keep her gown and NC on her body. She was able to take several large sips of apple juice through a straw but would not take any of her oral medications.
--- NOTE | 2023-09-14 16:08 | P.DN_ITS ---
Discharge Summary Date and Time Date of : 09/14/23 Time of : 12:50 Provider Pronounced By: 2 RNs Name of First RN That Pronounced: Deb Sparks RN Name of Second RN That Pronounced: Abby Arzate RN Probable Cause of Probable Cause of : Pneumonia with underlying lung mass Summary Hospital Course: 88 y/o F with PMH of schizophrenia, HTN, and HLD presents to the hospital from [facility] for evaluation of pneumonia and general malaise. Of note patient recently treated with Levofloxacin which was prescribed on 08/13/2023 and Augmentin which was prescribed on 08/27/2023 for pneumonia. CBC with leukocytosis with CTA and CXR demonstrating patchy masslike regions of consolidation bilaterally, mass verses pneumonia verses combination. Due to patients failed outpatient therapy she was started on cefepime and vanc (discont inued as MRSA-). Oncology was consulted for the lung mass and recommended biopsy to son, however son refused and was interested hospice/palliative care. Patient remained inpatient receiving antibiotics for the pneumonia and developed worsening shortness of breath with increased o2 requirement and tachycardia. CTA PE was performed and no PE noted. Patient then started to refuse her medications, stopped eating and was removing her oxygen. Discussed this with son and hospice consult was placed. Patient was to be discharged back to [facility] on hospice through [facility]. However on 09/14/23 I was doing my morning rounds when I entered patients room at approximately 1245. I attempted to wake patient and noted that she had no chest rise/fall and was not breathing. There was no carotid pulse and or heart sounds on auscultation. Due to patient being a DNR no ACLS was administered. Son was notified and time of was called at 1250. Additional Data Confirmation of as documented by pronouncing clinician: Pupillary Reflex, Palpable Pulses, Response to Stimuli, Heart Tones and Breath Sounds Family: contacted Name of Provider Notified: Nicole Whitehead PA-C Time Provider Notified: 12:50 Was code activated?: No (Patient DNR.) Hand Mica Plate Layer Notified: Yes Date [facility] Notified of : 09/14/23 Time [facility] Notified of : 14:33
[2023-09-14 19:28] LABS: Pneumococcal Antigen Urine NOT DETECTED
[2023-09-16 21:52] LABS: Mycoplasma IgM Antibody Titer 38 U/mL
== END 2023-09-14 12:50 | disposition expired | DRG 194 ==
LOC: ANHED 12:01 → ANH3MEDSUR 13:30
PROVIDERS: Nurse Practitioner Family; Physician Assistant; Student in an Organized Health Care Education/Training Program; Admitting Provider Internal Medicine; Emergency Provider Family Medicine; Visit Provider Internal Medicine
DX: J18.9 Pneumonia, unspecified organism (principal); I50.30 Unspecified diastolic (congestive) heart failure; N17.9 Acute kidney failure, unspecified; R91.8 Other nonspecific abnormal finding of lung field; I11.0 Hypertensive heart disease with heart failure; Z66 Do not resuscitate; Z20.822 Contact with and (suspected) exposure to COVID-19; K21.9 Gastro-esophageal reflux disease without esophagitis; D50.9 Iron deficiency anemia, unspecified; E78.5 Hyperlipidemia, unspecified; H35.30 Unspecified macular degeneration; F20.9 Schizophrenia, unspecified; F03.90 Unspecified dementia, unspecified severity, without behavioral disturbance, psychotic disturbance, mood disturbance, and anxiety; Z90.49 Acquired absence of other specified parts of digestive tract; Z51.5 Encounter for palliative care; Z86.73 Personal history of transient ischemic attack (TIA), and cerebral infarction without residual deficits
CPT/HCPCS: 36415; 71045; 71260; 71275; 80048; 80053; 80178; 80202; 81003; 82565; 82607; 82728; 82746; 83540; 83550; 83735; 83880; 84145; 85025; 85652; 86140; 86738; 87040; 87449; 87637; 87641; 87899; 92610; 93005; 93306; 93970; 94640; 96374; 99285; A9270; J0456; J0692; J0696; J0780; J1756; J2919; J3370; J7030; J7050; Q9967